=== PATIENT | female | born 1960 | race Two or more races ===

== ENCOUNTER 2017-08-09 06:15 | Inpatient (IN) | payer OTHER ==
[2017-07-30 13:46] VITALS: BMI 26.4
--- NOTE | 2017-08-09 07:35 | HP ---
History & Physical Update - History History: No Change - Physical Physical: No Change - Assessment Assessment: No Change - Plan Plan: No Change
--- NOTE | 2017-08-09 08:02 | PN ---
Progress Note (short form) - Note Progress Note: NEUROSURGERY PRE-OP Pt with worsening dysphagia secondary to enlarging C4-5 anterior osteophytes H/o initially C5-6 ACDF, followed by C6-T1 ACDF For partial corpectomies C5 and C6 Risks- bleeding, infection, hoarseness, swallowing difficulty, general anesthesia On SSRI with possible increased bleeding risks, though other non-reported confounding factors from the prior series could be the cause Further, patient has undergone multiple surgical procedures while on SSRI previously without hemorrhagic adverse events Care d/w Dr Tobias Pt understands the above and wishes to proceed at bedside All questions answered
[2017-08-09] MEDS ORDERED: THROMBIN (BOVINE) 5,000 UNIT VIAL TP ONE (09:46)
[2017-08-09] MEDS ORDERED: BACITRACIN 15 GM TUBE TOPICAL OINTMENT ONE (09:46)
[2017-08-09] MEDS ORDERED: SUCCINYLCHOLINE CHLORIDE 200 MG/10 ML VIAL ONE (09:49)
[2017-08-09] MEDS ORDERED: MIDAZOLAM HCL 2 MG/2 ML SINGLE DOSE VIAL ONE (09:49)
[2017-08-09] MEDS ORDERED: ceFAZolin SODIUM 1 GM VIAL IVPB ONE (10:30)
[2017-08-09] MEDS ORDERED: PROPOFOL 20 ML ONE ×12 (10:56→12:02)
[2017-08-09] MEDS ORDERED: ONDANSETRON 4 MG/2 ML VIAL ONE (11:01)
[2017-08-09] MEDS ORDERED: ceFAZolin SODIUM 1 GM VIAL ONE (11:01)
[2017-08-09] MEDS ORDERED: LIDOCAINE HCL/PF 2% SDV 5ML VIAL ONE (11:01)
[2017-08-09] MEDS ORDERED: DEXAMETHASONE SOD PHOSPHATE 4 MG/1 ML VIAL ONE (11:01)
[2017-08-09] MEDS ORDERED: LIDOCAINE HCL 2% JELLY (5 ML/TUBE) ONE (11:01)
[2017-08-09] MEDS ORDERED: DESFLURANE GAS 240 ML BOTTLE IH ONE (12:39)
[2017-08-09] MEDS ORDERED: oxyCODONE HCL 5 MG TABLET PO PRN (12:46)
[2017-08-09] MEDS ORDERED: ONDANSETRON 4 MG/2 ML VIAL IVPUSH PRN ×2 (12:46→13:30)
--- NOTE | 2017-08-09 12:46 | OP ---
Operative Note - Note: Operative Date: 08/09/17 Pre-Operative Diagnosis: C4 and C5 anterior osteophyes Operation: Partial corpectomies C4 and C5; microdissection, Gianni Suarez traction tongs for intra-op traction Findings: Large bridging L sided osteophytes C4 and C5 Post-Operative Diagnosis: Same as Pre-op Surgeon: Matthew Smallwood Assistant Controller: Alysia Pérez Anesthesiologist/ROCKET ENGINE COMPONENT MECHANIC: Noemi Becker MD Anesthesia: General Specimens Removed: C4 and C5 osteophytes Estimated Blood Loss (mls): 25
[2017-08-09] MEDS ORDERED: HYDROmorphone HCL CARPU-JECT 2 MG/1 ML DISP.SYRIN IVPB PRN (12:49)
[2017-08-09] MEDS ORDERED: SUMAtriptan SUCCINATE 50 MG TABLET PO PRN (12:50)
[2017-08-09] MEDS ORDERED: D5-1/2NS+20 MEQ KCL - 20 MEQ/1,000 ML INFUS.BAG IV SCH (13:00)
--- NOTE | 2017-08-09 13:18 | SURG ---
Surgery Karate Teacher Note Karate Teacher: Alysia Pérez PA-C Date of Service: 08/09/17 Diagnosis: C4 and C5 anterior osteophyes Procedure: Operation: Partial corpectomies C4 and C5; melissa, Gianni Suarez traction tongs for intra-op traction I was present for the entirety of the operative procedure. For further detail, please refer to operative report. Visit type - Case Type Case Type: Scheduled Admission - Emergency Emergency Visit: No - New patient This patient is new to me today: Yes Date on this admission: 08/09/17
[2017-08-09] MEDS ORDERED: LACTATED RINGERS SOLUTION 1,000 ML IV SCH (13:30)
--- NOTE | 2017-08-09 14:59 | PN ---
Progress Note (short form) - Note Progress Note: NEUROSURGERY In PACU Comfortable AF,VSSO2 sat 100% on 2 L PE: Dressing intact CV- RRR; Lungs- CTA B; Abd- benign; Ext- normal, no sign of DVT CN- intact; Motor- 4+-5/5 B UE/LE; Sensation- intact Intra-op findings d/w pt and All questions answered C spine x-rays in AM Pain meds PRN Adv diet- clear first
[2017-08-09] MEDS: FUROSEMIDE 40 MG TABLET (FP) PO SCH (16:19)
[2017-08-09] MEDS: DOCUSATE SODIUM 100 MG CAPSULE (FP) PO SCH ×2 (16:20→21:40)
[2017-08-09] MEDS: diazePAM 5 MG TABLET PO SCH ×2 (16:21→21:40)
[2017-08-09] MEDS: CEFAZOLIN 1 GM PUSH 1 GM/10 ML DISP.SYRIN IVPUSH SCH (18:00)
[2017-08-09] MEDS: TOPIRAMATE 25 MG TABLET (FP) PO SCH (21:40)
[2017-08-09] MEDS: PANTOPRAZOLE 40 MG TABLET (FP) PO SCH (21:40)
[2017-08-09] MEDS ORDERED: ZOLPIDEM TARTRATE 5 MG TABLET PO PRN (22:00)
[2017-08-09] MEDS ORDERED: PATIENT'S OWN MEDICATION (NON-FORMULARY) (Oxybutynin Chloride [Oxybutynin Chloride Er] 15 PO SCH (22:00)
[2017-08-09] MEDS ORDERED: QUEtiapine FUMARATE 100 MG TABLET (FP) PO SCH (22:00)
[2017-08-09] MEDS ORDERED: GABAPENTIN ENACARBIL 600 MG PO SCH (22:00)
[2017-08-09] MEDS ORDERED: MILNACIPRAN HCL 100 MG PO SCH (22:00)
[2017-08-09] MEDS ORDERED: RANITIDINE HCL 150 MG TABLET (FP) PO SCH (22:00)
[2017-08-10] MEDS: CEFAZOLIN 1 GM PUSH 1 GM/10 ML DISP.SYRIN IVPUSH SCH (01:12)
[2017-08-10] MEDS: FUROSEMIDE 40 MG TABLET (FP) PO SCH (05:45)
[2017-08-10] MEDS: DOCUSATE SODIUM 100 MG CAPSULE (FP) PO SCH (05:45)
[2017-08-10] MEDS: diazePAM 5 MG TABLET PO SCH (05:45)
--- NOTE | 2017-08-10 08:34 | PN ---
Progress Note (short form) - Note Progress Note: NEUROSURGERY In PACU Comfortable Some R breast area pain Tmax 98.9, AF,VSS PE: Dressing C/D/I, changed CV- RRR; Lungs- CTA B, no breast erosion/lesion noted (examined in RN Karla's presence); Abd- benign; Ext- normal, no sign of DVT CN- intact; Motor- 4+-5/5 B UE/LE; Sensation- intact Intra-op findings d/w pt and C spine x-rays this AM Pain meds PRN Possible atelectasis, encouraged incentive spirometry Discharge and wound care instructions given All questions answered
--- NOTE | 2017-08-10 08:43 | DS ---
Physical Examination Vital Signs: Vital Signs Temperature 98.9 F 08/10/17 07:06 Pulse Rate 103 H 08/10/17 07:06 Respiratory Rate 20 08/10/17 07:06 Blood Pressure 118/70 08/10/17 07:06 O2 Sat by Pulse Oximetry (%) 100 08/09/17 15:00 Constitutional: Yes: Well Nourished Eyes: Yes: WNL HENT: Yes: WNL Neck: Yes: WNL Cardiovascular: Yes: WNL Respiratory: Yes: WNL Gastrointestinal: Yes: WNL ...Rectal Exam: Yes: WNL, Sphincter Tone Normal Breast(s): Yes: WNL Musculoskeletal: Yes: WNL Extremities: Yes: WNL Edema: No Peripheral Pulses WNL: Yes Integumentary: Yes: WNL Wound/Incision: Yes: Clean/Dry, Dressing Dry and Intact Neurological: Yes: WNL ...Motor Strength: WNL Psychiatric: Yes: WNL Discharge Summary Reason For Visit: SPONDYLOSIS W/O MYELOPATHY OR RADICULOPATHY, CERVI Condition: Stable - Instructions Diet, Activity, Other Instructions: Post-op Instructions Diet: Regular Activity:May shower but keep incision line dry. Change dressing after shower with sterile gauze and tegaderm Restrictions: Do not lift anything over 10lbs. Additional Instructions: Keep incision line clean and dry. Change dressing daily. Report any chills, fever (100 or greater), any wound drainage, or any neurological changes to Dr. Smallwood. Do not drive for two weeks. Initial post-op appt: Call Dr. Smallwood's office to be seen in about 2 weeks Disposition: HOME - Home Medications Comprehensive Discharge Medication List: Ambulatory Orders Diazepam [Valium -] 10 mg PO HS 08/05/14 Diazepam [Valium] 5 mg PO DAILY 08/05/14 Furosemide [Lasix -] 20 mg PO BID 08/05/14 Potassium Chloride 20 meq PO DAILY 08/05/14 Quetiapine Fumarate [Seroquel -] 100 mg PO HS 08/05/14 Rabeprazole Sodium [Aciphex] 20 mg PO DAILY 08/05/14 Sumatriptan Succinate [Imitrex -] 100 mg PO PRN PRN 08/05/14 Zolpidem Tartrate [Ambien] 10 mg PO HS 08/05/14 Famotidine [Pepcid -] 40 mg PO HS 07/30/17 Gabapentin Enacarbil [Horizant] 600 mg PO BID 07/30/17 Milnacipran HCl [Savella] 100 mg PO BID 07/30/17 Omeprazole 40 mg PO BID 07/30/17 Oxybutynin Chloride [Oxybutynin Chloride ER] 15 mg PO HS 07/30/17 Topiramate 50 mg PO BID 07/30/17 Cephalexin Monohydrate [Keflex -] 500 mg PO Q6HPO #28 capsule 08/10/17 Oxycodone HCl [Roxicodone -] 5 mg PO Q6H PRN #56 tablet MDD 4 08/10/17
[2017-08-10] MEDS: PANTOPRAZOLE 40 MG TABLET (FP) PO SCH (09:44)
[2017-08-10] MEDS: TOPIRAMATE 25 MG TABLET (FP) PO SCH (09:44)
[2017-08-10] MEDS ORDERED: POTASSIUM CHLORIDE TABS 20 MEQ TABLET.ER (FP) PO SCH (10:00)
[2017-08-10] MEDS ORDERED: PANTOPRAZOLE 40 MG TABLET (FP) PO SCH (10:00)
[2017-08-10] MEDS ORDERED: CEPHALEXIN MONOHYDRATE 500 MG CAPSULE (UD) PO SCH (12:00)
[2017-08-10 14:31] VITALS: BP 133/70; PULSE 105; TEMP 100
--- NOTE | 2017-08-10 14:57 | PN ---
Progress Note (short form) - Note Progress Note: Anesthesia POD#1 S/P Anterior Cervical discectomy under GA VSS,no N/V,pain is bearable. Food is advanced. Meredith Plummer MD.
--- NOTE | 2017-08-10 19:00 | PATH ---
Surgical Pathology Report Patient Name: ARVIND GODWIN Med. Rec. #: [id number] /Age/Gender: 1960 (Age: 56) / F Account: [id number] Location: [facility] MED/SURG Taken: 08/09/2017 Received: 08/09/2017 Reported: 08/10/2017 Physicians: Matthew Smallwood M.D. Specimen(s) Received C4-C5 CORPECTOMIES Clinical History Spondylosis with myelopathy Final Diagnosis C4-C5, ANTERIOR CERVICAL CORPECTOMIES: BONE AND FIBROCARTILAGINOUS TISSUE. Electronically Signed Mary Pearson M.D. Gross Description Received in formalin labeled "C4-C5 corpectomies," is a 4.0 x 3.2 x 0.4 cm aggregate of gerber fragments of fibrocartilaginous tissue and possible bone. A signs sales representative portion is submitted in one cassette, following decalcification. 08/09/201708/09/2017
--- NOTE | 2017-08-26 13:10 | OP ---
DATE OF OPERATION: 08/09/2017 PREOPERATIVE DIAGNOSIS: 1. Enlarging C4 and C5 central and left-sided anterior osteophytes with progressive dysphagia. 2. History of C5 through T1 fusion. POSTOPERATIVE DIAGNOSIS: 1. Enlarging C4 and C5 central and left-sided anterior osteophytes with progressive dysphagia. 2. History of C5 through T1 fusion. ATTENDING SURGEON: Matthew Smalwlood MD LABORER RAGS: DENISE Gomes ANESTHESIA: General endotracheal. ANESTHESIOLOGIST: Noemi Becker MD PROCEDURE: 1. Preoperative placement and postoperative removal of cranial traction tongs for intraoperative traction (58156). 2. Anterior cervical partial corpectomy C4 and C5 with decompression (62318, 17822). 3. Microsurgical dissection with operative microscope and microsurgical technique (62515). FINDINGS: 1. Large left-sided anterior cervical osteophytes with significant mass effect. 2. Prevertebral soft tissue swelling. INDICATIONS: The patient is a 56-year-old female who had previously undergone C-C6 anterior cervical discectomy and fusion followed by subsequent C6 through T1 fusion for spondylolisthesis and disc herniation, who complains of just about 1+ year history of progressive dysphagia. She stated that she has undergone CT scan and x-rays of the cervical spine demonstrating progressively enlarging left-sided anterior cervical osteophytes. She also has difficulty with dysphagia. Because of her worsening symptoms and impingement caused by the large osteophytes, she has consented for an anterior cervical decompression. Preoperative medical, cardiology and hematology clearance were obtained. The patient understands the indications for the procedure, the procedure in detail, risks and benefits, as well as alternative treatments to her condition, and she wished to proceed. She understands that she is at somewhat increased risk of bleeding because of her use of serotonin reuptake inhibitor use for mood stabilization. Intraoperative SSEP, EMG, and recurrent laryngeal nerve monitoring were instituted. PROCEDURE IN DETAIL: After the patient was taken to the operating room, she was placed in the supine position. After general anesthesia was induced and appropriate monitoring lines were placed, her shoulders down to the sides. The head was secured on the [place] in a neutral position. The cranial retraction towels were placed, applied with Bacitracin ointment. No traction weight was placed until baseline and neuromonitoring signals were obtained. This monitoring included recurrent laryngeal nerve monitoring. At this point, the prior C5-C6 incision was utilized. The skin was undermined with Metzenbaum scissors. Self-retaining retractor was inserted at that point. The patient had previously been sterilely prepped and draped. The dissection proceeded medial to the carotid sheath, and lateral to the trachea and the esophagus. Some degree of paraspinal and fibrosis was encountered. The large anterior osteophytes were identified and skeletonized with a combination of blunt and sharp dissection. A self-retaining radiolucent retractor system was inserted at this point. Local with IV sedation was obtained at this point to localize the exposure to C4-C5. A more cephalad approach was needed because the prior incision was made for C5-C6. With the use of Leksell rongeur, high-speed pneumatic drill, as well as pituitary rongeur, the large cervical osteophyte was resected. It was predominantly left-sided. Hemostasis was obtained with bipolar electrocautery. The osteophyte was thoroughly resected and was inspected carefully from the cranial to caudal exposure. The anterior vertebral body was palpated and manually palpated, and it was felt to be flat after decompression was completed. This portion of the procedure was performed with the use of the operative microscope for both illumination and magnification. Microsurgical techniques were utilized. The wound was irrigated with several rounds of antibiotic and irrigation. After the decompression was completed, the area was once again palpated manually, and there do not appear to be any significant residual large osteophyte. Several cervical spine x-rays were obtained demonstrating significant improvement as well as the large bridging osteophytes. In all, partial corpectomy of the bottom vertebral body of the left-sided vertebral body of C4 and C% were carried out in order to achieve decompression. Layered Surgicel was layered in the dissection tract as well as the prevertebral fascia area. The platysmal muscle was closed with 3-0 Vicryl suture, as was subcutaneous fascia. Skin was closed with 4-0 Vicryl running subcuticular suture. Steri-Strips and sterile occlusive dressing were applied. The patient tolerated the procedure well and was extubated in the operating room. She received 1 g of Ancef and 10 mg of dexamethasone prior to the incision. The OR time-out procedure was followed. Intraoperative SSEP and EMG signals were stable throughout. The patient and her were notified of the intraoperative findings. MATTHEW SMALLWOOD M.D. KYLE/[id number]
== END 2017-08-10 15:46 | disposition home or self-care (01) | DRG 473 ==
LOC: JSAMEDAYSX 06:15 → J8W 15:30
PROVIDERS: ADMIT Neurological Surgery; ATTEND Neurological Surgery
PROC: 01N10ZZ Release Cervical Nerve, Open Approach (ICD-10-PCS; 2017-08-09)
PROC: 0RP Upper Joints, Removal (ICD-10-PCS; 2017-08-09)
PROC: 0RG10J0 Fusion of Cervical Vertebral Joint with Synthetic Substitute, Anterior Approach, Anterior Column, Open Approach (ICD-10-PCS; principal; 2017-08-09 08:00)
DX: M25.78 Osteophyte, vertebrae (principal); M47.812 Spondylosis without myelopathy or radiculopathy, cervical region; R13.10 Dysphagia, unspecified
CPT/HCPCS: 72050-TC; 86850; 86900; 86901; 88304-TC; 88311-TC; 94760; 97116-GP

== ENCOUNTER 2018-09-20 05:30 | Day surgery (SDC) | payer OTHER ==
[2018-09-12 13:33] VITALS: BMI 24.5
[2018-09-20] MEDS ORDERED: LIDOCAINE 1%/EPI 1:100000 (20 ML MULTI DOSE VIAL) ONE (07:19)
[2018-09-20] MEDS ORDERED: BUPIVACAINE HCL/PF 0.5% (5MG/ML) 10 ML VIAL ONE (07:19)
[2018-09-20] MEDS ORDERED: oxyCODONE HCL 5 MG TABLET PO PRN (12:37)
[2018-09-20] MEDS ORDERED: PROMETHAZINE HCL 25 MG/1 ML VIAL IVPB PRN (12:37)
[2018-09-20] MEDS ORDERED: LACTATED RINGERS SOLUTION 1,000 ML IV SCH (12:45)
--- NOTE | 2018-09-20 13:07 | HP ---
Admitting History and Physical - Primary Care Physician PCP: Deon Smith (Bank Officer) - Admission Chief Complaint: Pain in the right bunion History of Present Illness: After years of suffering patient has requested surgical correction History Source: Medical Record (Medical history deferred to PCP) - Past Medical History ARTISAN PLASTERER: Yes: Seizure Cardiovascular: Yes: HTN Pulmonary: Yes: Asthma Gastrointestinal: Yes: GERD ...: No Psych: Yes: Anxiety Musculoskeletal: Yes: Chronic low back pain, Other (S/P right TKR, Hx of surgery for DeQuervain tenosynovitis, s/p surgery for bilateral carpa;l tunnel syndrome) - Past Surgical History Past Surgical History: Yes: Hysterectomy, Joint Replacement, Laminectomy (left foot surgery) - Smoking History Smoking history: Never smoked Have you smoked in the past 12 months: No Aproximately how many cigarettes per day: 0 - Alcohol/Substance Use Hx Alcohol Use: No - Social History History of Recent Travel: No Home Medications - Allergies Allergies/Adverse Reactions: Allergies Allergy/AdvReac Type Severity Reaction Status Date / Time No Known Allergies Allergy Verified 09/12/18 13:00 - Home Medications Home Medications: Ambulatory Orders Diazepam [Valium -] 10 mg PO HS 08/05/14 Diazepam [Valium] 5 mg PO DAILY 08/05/14 Furosemide [Lasix -] 20 mg PO BID 08/05/14 Potassium Chloride 20 meq PO DAILY 08/05/14 Quetiapine Fumarate [Seroquel -] 100 mg PO HS 08/05/14 Sumatriptan Succinate [Imitrex -] 100 mg PO PRN PRN 08/05/14 Zolpidem Tartrate [Ambien] 10 mg PO HS 08/05/14 Famotidine [Pepcid -] 40 mg PO HS 07/30/17 Gabapentin Enacarbil [Horizant] 600 mg PO BID 07/30/17 Omeprazole 40 mg PO DAILY 07/30/17 Topiramate 50 mg PO BID 07/30/17 Lifitegrast [Xiidra] 1 OU BID 09/12/18 Oxybutynin Chloride [Ditropan -] 50 mg PO DAILY 09/12/18 Physical Examination Vital Signs: Vital Signs Temperature 97.4 F L 09/20/18 11:31 Pulse Rate 83 09/20/18 11:31 Respiratory Rate 16 09/20/18 11:31 Blood Pressure 125/78 09/20/18 11:31 O2 Sat by Pulse Oximetry (%) 99 09/20/18 11:31 Musculoskeletal: Yes: Other (Right bunion with hallux valgus.) Assessment/Plan Assessment Right bunion with hallux valgus is moderate in severity. Joint integrity is considered adequate for joint realignment. Patient seems calm and prepared for the post operative course. Plan Right Raghav Bunionectomy with screw fixation.
[2018-09-20] MEDS ORDERED: MIDAZOLAM HCL 2 MG/2 ML SINGLE DOSE VIAL ONE (13:11)
[2018-09-20] MEDS ORDERED: PROPOFOL 20 ML ONE ×2 (13:11→16:13)
[2018-09-20] MEDS ORDERED: LIDOCAINE HCL/PF 2% SDV 5ML VIAL ONE (15:12)
[2018-09-20] MEDS ORDERED: ceFAZolin SODIUM 1 GM VIAL ONE (15:18)
[2018-09-20] MEDS ORDERED: SODIUM CHLORIDE 0.9% P/F 10 ML VIAL IJ ONE (15:18)
[2018-09-20] MEDS ORDERED: ceFAZolin SODIUM 1 GM VIAL IVPB ONE (15:19)
[2018-09-20] MEDS ORDERED: BUPIVACAINE HCL/PF (5 MG/ML) 30 ML VIAL IJ ONE (15:30)
[2018-09-20] MEDS ORDERED: LIDOCAINE 1%/EPI 1:100000 (20 ML MULTI DOSE VIAL) IJ ONE (15:30)
[2018-09-20] MEDS ORDERED: KETOROLAC TROMETHAMINE 30 MG/1 ML VIAL ONE (16:08)
[2018-09-20] MEDS ORDERED: MEPERIDINE HCL CARPU-JECT 25 MG/1 ML DISP.SYRIN ONE (16:35)
[2018-09-20] MEDS ORDERED: MEPERIDINE HCL CARPU-JECT 25 MG/1 ML DISP.SYRIN IVPUSH ONE ×2 (16:36→16:40)
[2018-09-20 17:40] VITALS: BP 117/70; PULSE 61; TEMP 98
--- NOTE | 2018-09-20 17:42 | OP ---
DATE OF OPERATION: 09/20/2018 SURGEON: Deon Smith DPM PREOPERATIVE DIAGNOSIS: Right bunion with hallux valgus. POSTOPERATIVE DIAGNOSIS: Right bunion with hallux valgus. PROCEDURE: Right Raghav bunionectomy. DESCRIPTION OF PROCEDURE: Under fractional anesthesia, and the surgical scrub with Betadine scrub and solution x2, the patient was draped using sterile technique. No ankle tourniquet was used. The linear longitudinal incision was made over the right first metatarsophalangeal joint. The incision was deepened through fascia and retracted, exposing the extensor borjas apparatus and the deep fascia. The extensor borjas apparatus was medially incised and laterally reflected. Longitudinal capsulotomy was performed, medial and lateral sesamoidal ligaments were cut, and the head of the first metatarsal was delivered into the wound. The medial eminence was resected using a bone saw, and then an L-shaped osteotomy was made at the anatomic neck of the right first metatarsal. The first metatarsal head was transposed laterally and fixed on the shaft, first with 2 temporary K-wires and then with two 2.5 Boring 28 headless bone screws. Following copious irrigation and remodeling of the remaining bone, joint capsule was repositioned in normal anatomic position and sutured with 3-0 Vicryl suture. The extensor borjas apparatus was repositioned and sutured in similar fashion, and then superficial fascia also repositioned and sutured with 4-0 Vicryl sutures. Lastly, the skin was reapproximated and sutured with 4-0 subcuticular sutures and Steri-Strips. The Betadine sterile dressing was applied to the right foot. The patient tolerated the surgical procedure well, left the operating room stable, alert, awake, and in no pain. RAJAN RAYGOZA/[id number]
--- NOTE | 2018-09-23 20:46 | PATH ---
Surgical Pathology Report Patient Name: ARVIND GODWIN Med. Rec. #: [id number] /Age/Gender: 1960 (Age: 57) / F Account: [id number] Location: [facility] SURGICAL Taken: 09/20/2018 Received: 09/21/2018 Reported: 09/23/2018 Physicians: Deon Smith M.D. Specimen(s) Received BUNION Clinical History Bunion of right foot Final Diagnosis BUNION, RIGHT, SHAD BUNIONECTOMY: BONE WITH DEGENERATIVE CHANGES. Electronically Signed Mary Pearson M.D. Gross Description Received in formalin labeled "bunion," are 2 gerber portions of bone measuring 1.1 and 2.0 cm in greatest dimension. Cane Piler sections are submitted in one cassette, following decalcification. /09/22/201809/22/2018
== END 2018-09-20 18:45 | disposition home or self-care (01) ==
LOC: JASU-SURG 05:30
PROVIDERS: ATTEND Podiatrist Foot Surgery
PROC: 0QSN04Z Reposition Right Metatarsal with Internal Fixation Device, Open Approach (ICD-10-PCS; principal; 2018-09-20 13:00)
DX: M21.611 Bunion of right foot (principal); M20.11 Hallux valgus (acquired), right foot
CPT/HCPCS: 88305-TC; 88311-TC; 94760; 97116-GP

== ENCOUNTER 2019-10-30 11:16 | Emergency (ER) | payer OTHER ==
[2019-10-30 12:32] VITALS: BP 115/72; PULSE 8; TEMP 97.9; BMI 27.4
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
== END 2019-10-30 14:21 | disposition home or self-care (01) ==
LOC: EDBD → JERFT 11:16
DX: S97.81XA Crushing injury of right foot, initial encounter (principal); W22.8XXA Striking against or struck by other objects, initial encounter; Y93.89 Activity, other specified; Y92.811 Bus as the place of occurrence of the external cause; Y99.8 Other external cause status; M46.86 Other specified inflammatory spondylopathies, lumbar region; Z98.1 Arthrodesis status; K21.9 Gastro-esophageal reflux disease without esophagitis; F32.9 Major depressive disorder, single episode, unspecified; Z86.73 Personal history of transient ischemic attack (TIA), and cerebral infarction without residual deficits; Z98.890 Other specified postprocedural states
CPT/HCPCS: 72100-TC-FY; 73630-TC-RT-FY; 99284-25

== ENCOUNTER 2021-06-10 04:51 | Day surgery (SDC) | payer OTHER, MEDICARE ==
[2021-06-05 16:52] VITALS: BMI 27.3
[2021-06-10] MEDS ORDERED: BUPIVACAINE HCL/PF 0.5% (5MG/ML) 10 ML VIAL ONE (12:53)
[2021-06-10] MEDS ORDERED: LIDOCAINE HCL 1% PRESERVATIVE FREE - 30ML VIAL IJ ONE (13:05)
[2021-06-10] MEDS ORDERED: BUPIVACAINE HCL/PF 0.75% 10 ML VIAL RB ONE (13:05)
[2021-06-10] MEDS ORDERED: IOHEXOL 180 MG/1 ML ML IJ ONE (13:05)
[2021-06-10 13:33] VITALS: BP 125/85; PULSE 74; TEMP 97.7
== END 2021-06-10 13:56 | disposition home or self-care (01) ==
LOC: EDBD → JASU-SURG 04:51
PROVIDERS: ATTEND Pain Medicine Pain Medicine
PROC: BR16YZZ Fluoroscopy of Lumbar Facet Joint(s) using Other Contrast (ICD-10-PCS; 2021-06-10)
PROC: 3E0T3BZ Introduction of Anesthetic Agent into Peripheral Nerves and Plexi, Percutaneous Approach (ICD-10-PCS; principal; 2021-06-10 10:15)
DX: M47.816 Spondylosis without myelopathy or radiculopathy, lumbar region (principal)
CPT/HCPCS: 76000-TC-FY

== ENCOUNTER 2021-11-13 04:14 | Day surgery (SDC) | payer OTHER, MEDICARE ==
[2021-11-10 15:43] VITALS: BMI 29.5
[2021-11-13] MEDS ORDERED: BUPIVACAINE HCL/PF 0.25% (2.5MG/ML) 10 ML VIAL ONE (07:30)
[2021-11-13] MEDS ORDERED: BUPIVACAINE HCL/PF 0.5% (5MG/ML) 10 ML VIAL ONE (07:30)
[2021-11-13] MEDS ORDERED: ONDANSETRON 4 MG/2 ML VIAL IVPUSH PRN (09:10)
[2021-11-13] MEDS ORDERED: oxyCODONE HCL 5 MG TABLET PO PRN ×2 (09:10)
[2021-11-13] MEDS ORDERED: LACTATED RINGERS SOLUTION 1,000 ML IV SCH (09:15)
[2021-11-13 12:05] VITALS: TEMP 97.7
[2021-11-13 13:14] VITALS: BP 110/59; PULSE 70
== END 2021-11-13 12:18 | disposition home or self-care (01) ==
LOC: JASU-SURG 04:14
PROVIDERS: ATTEND Podiatrist Foot & Ankle Surgery
PROC: 0QBN0ZZ Excision of Right Metatarsal, Open Approach (ICD-10-PCS; principal; 2021-11-13 08:34)
DX: M20.11 Hallux valgus (acquired), right foot (principal)
CPT/HCPCS: 73630-TC-RT-FY; 88304-TC; 88311-TC

== ENCOUNTER 2022-06-10 07:30 | Inpatient (IN) | payer OTHER, MEDICARE ==
[2022-06-29 12:08] VITALS: BMI 29.0
[2022-07-01] MEDS ORDERED: THROMBIN (BOVINE) 5,000 UNIT VIAL TP ONE ×4 (07:17→11:18)
[2022-07-01] MEDS ORDERED: BUPIVACAINE HCL/PF 0.5% (5MG/ML) 10 ML VIAL ONE (07:17)
[2022-07-01] MEDS ORDERED: ceFAZolin SODIUM 1 GM VIAL IVPB ONE (08:45)
[2022-07-01] MEDS ORDERED: VANCOMYCIN 1,000 MG VIAL (RESTRICTED TO ID ONLY) ONE (08:54)
[2022-07-01] MEDS ORDERED: ALBUMIN HUMAN 5% 250 ML IV SOLUTION IV ONE (09:00)
[2022-07-01] MEDS ORDERED: VANCOMYCIN 1,000 MG VIAL (RESTRICTED TO ID ONLY) IVPB ONE (10:00)
[2022-07-01] MEDS ORDERED: BISACODYL 10 MG SUPP.RECT RC PRN (12:21)
[2022-07-01] MEDS ORDERED: ONDANSETRON 4 MG/2 ML VIAL IVPUSH PRN ×3 (12:21→13:14)
[2022-07-01] MEDS ORDERED: BACITRACIN 15 GM TUBE TOPICAL OINTMENT TP ONE (12:25)
[2022-07-01] MEDS ORDERED: D5-1/2NS+20 MEQ KCL - 1,000 ML IV SCH (12:30)
[2022-07-01] MEDS ORDERED: diazePAM 5 MG TABLET PO SCH (12:30)
[2022-07-01] MEDS ORDERED: DEXAMETHASONE SOD PHOSPHATE 4 MG/1 ML VIAL IVPUSH PRN (13:09)
[2022-07-01] MEDS: HYDROmorphone *PCA* 10MG/50ML DISP.SYRIN PCA SCH (13:59)
[2022-07-01] MEDS: D5-1/2NS+20 MEQ KCL - 20 MEQ/1,000 ML INFUS.BAG IV SCH (13:59)
[2022-07-01] MEDS: DOCUSATE SODIUM 100 MG CAPSULE (FP) PO SCH ×2 (14:48→22:39)
[2022-07-01 15:38] LABS: HEMATOCRIT 33.4 % (32.4-45.2); HEMOGLOBIN 11.2 GM/dL (10.7-15.3); MCH 30.8 pg (25.7-33.7); MCHC 33.5 g/dl (32.0-36.0); MEAN CELL VOLUME 92.1 fl (80-96); MEAN PLT VOLUME 9.8 fl (7.5-11.1); PLATELET COUNT 120 10^3/uL (134-434); RBC 3.63 M/mm3 (3.60-5.2)
[2022-07-01 16:09] LABS: CALCIUM 8.6 mg/dL (8.5-10.1)
[2022-07-01 16:10] LABS: BLOOD UREA NITROGEN 12.2 mg/dL (7-18)
[2022-07-01 16:13] LABS: CREATININE 1.3 mg/dL (0.55-1.3)
[2022-07-01] MEDS ORDERED: MEPERIDINE HCL 25 MG/ML VIAL IVPUSH ONE (17:17)
[2022-07-01] MEDS: LACTATED RINGERS SOLUTION 1,000 ML/1,000 ML INFUS.BAG IV SCH (17:30)
[2022-07-01] MEDS ORDERED: ceFAZolin SODIUM 1 GM VIAL ONE (17:42)
[2022-07-01] MEDS ORDERED: LACTATED RINGERS SOLUTION 1000 ML INFUS.BAG IV ONE (17:45)
[2022-07-01] MEDS: ACETAMINOPHEN 1000 MG/100 ML BAG IVPB PRN (18:00)
[2022-07-01] MEDS: CEFAZOLIN 1 GM in DEXTROSE 5%-WATER - 50 ML IVPB SCH (22:38)
[2022-07-01] MEDS: TOPIRAMATE 25 MG TABLET PO SCH (22:39)
[2022-07-01] MEDS: diazePAM 5 MG TABLET PO SCH (22:39)
[2022-07-01] MEDS: POTASSIUM CHLORIDE TABS 20 MEQ TABLET.ER (FP) PO SCH (22:39)
[2022-07-01] MEDS: QUEtiapine FUMARATE 100 MG TABLET (FP) PO SCH (22:39)
[2022-07-02] MEDS: CEFAZOLIN 1 GM in DEXTROSE 5%-WATER - 50 ML IVPB SCH ×4 (01:22→17:27)
[2022-07-02] MEDS: ACETAMINOPHEN 1000 MG/100 ML BAG IVPB PRN ×2 (05:46→13:19)
[2022-07-02] MEDS: diazePAM 5 MG TABLET PO SCH ×3 (05:47→21:22)
[2022-07-02] MEDS: FUROSEMIDE 40 MG TABLET (FP) PO SCH ×2 (05:48→14:21)
[2022-07-02] MEDS: DOCUSATE SODIUM 100 MG CAPSULE (FP) PO SCH ×3 (05:48→21:22)
[2022-07-02] MEDS: FAMOTIDINE 20 MG TABLET PO SCH (06:13)
[2022-07-02] MEDS: TOPIRAMATE 25 MG TABLET PO SCH ×2 (09:32→21:22)
[2022-07-02] MEDS: POTASSIUM CHLORIDE TABS 20 MEQ TABLET.ER (FP) PO SCH ×2 (09:32→21:22)
[2022-07-02] MEDS ORDERED: RIMEGEPANT SULFATE 75 MG TAB.RAPDIS SL PRN (11:33)
[2022-07-02] MEDS: LACTATED RINGERS SOLUTION 1,000 ML/1,000 ML INFUS.BAG IV SCH (12:22)
[2022-07-02] MEDS: HYDROmorphone *PCA* 10MG/50ML DISP.SYRIN PCA SCH (13:26)
[2022-07-02] MEDS: D5-1/2NS+20 MEQ KCL - 20 MEQ/1,000 ML INFUS.BAG IV SCH (13:28)
[2022-07-02] MEDS: prednisoLONE ACETATE 1% OPHTH SUSP 5 ML BOTTLE OD SCH ×3 (14:22→21:22)
[2022-07-02] MEDS: [UNRECOGNIZED DRUG - OTHER] OU SCH ×3 (14:22→23:05)
[2022-07-02] MEDS: PANTOPRAZOLE 40 MG TABLET PO SCH (17:27)
[2022-07-02] MEDS: ACETAMINOPHEN 325 MG TABLET (FP) PO PRN (21:21)
[2022-07-02] MEDS: QUEtiapine FUMARATE 100 MG TABLET (FP) PO SCH (21:22)
[2022-07-02] MEDS: PATIENT'S OWN MEDICATION (NON-FORMULARY) (Lifitegrast [Xiidra] 1 EACH Droperette) OU SCH (23:06)
[2022-07-02] MEDS: PATIENT'S OWN MEDICATION (NON-FORMULARY) (Gabapentin Enacarbil [Horizant] 600 MG Tablet.Er PO SCH (23:06)
[2022-07-03] MEDS: LACTATED RINGERS SOLUTION 1,000 ML/1,000 ML INFUS.BAG IV SCH ×3 (00:05→17:30)
[2022-07-03 00:58] LABS: EOS % 0.2 % (0-4.5); HEMATOCRIT 33.2 % (32.4-45.2); HEMOGLOBIN 11.1 GM/dL (10.7-15.3); LYMPH % 9.3 % (8-40); MCH 30.7 pg (25.7-33.7); MCHC 33.5 g/dl (32.0-36.0); MEAN CELL VOLUME 91.7 fl (80-96); MEAN PLT VOLUME 10.2 fl (7.5-11.1); MONO % 8.2 % (3.8-10.2); NEUT % 82.3 % (42.8-82.8); PLATELET COUNT 105 10^3/uL (134-434); RBC 3.62 M/mm3 (3.60-5.2); RDW 12.8 % (11.6-15.6); WHITE BLOOD COUNT 15.1 K/mm3 (4.0-10.0)
[2022-07-03 01:01] LABS: EPI CELLS 11 /uL (0-25.1); HYALINE CASTS 1 /uL (0-3.1); URINE APPEARANCE CLEAR; URINE BACTERIA 4 /uL (0-1359); URINE BILIRUBIN NEGATIVE (NEGATIVE); URINE COLOR YELLOW; URINE GLUCOSE (UA) NEGATIVE (NEGATIVE); URINE KETONE NEGATIVE (NEGATIVE); URINE LEUK ESTERASE TRACE (NEGATIVE); URINE NITRITE NEGATIVE (NEGATIVE); URINE PROTEIN TRACE (NEGATIVE); URINE RBC 20 /uL (0-23.9); URINE WBC 23 /uL (0-25.8)
[2022-07-03 01:18] LABS: ALBUMIN 2.8 g/dl (3.4-5.0); BLOOD UREA NITROGEN 11.6 mg/dL (7-18); CALCIUM 8.6 mg/dL (8.5-10.1)
[2022-07-03 01:21] LABS: CREATININE 1.4 mg/dL (0.55-1.3)
[2022-07-03 01:25] LABS: TOT PROT 6.1 g/dl (6.4-8.2)
[2022-07-03 01:28] LABS: BILIRUBIN,TOTAL 0.8 mg/dL (0.2-1)
[2022-07-03] MEDS: CEFAZOLIN 1 GM in DEXTROSE 5%-WATER - 50 ML IVPB SCH ×3 (02:08→17:33)
[2022-07-03] MEDS: DOCUSATE SODIUM 100 MG CAPSULE (FP) PO SCH ×3 (06:14→21:39)
[2022-07-03] MEDS: FAMOTIDINE 20 MG TABLET PO SCH (06:14)
[2022-07-03] MEDS: diazePAM 5 MG TABLET PO SCH ×3 (06:14→21:39)
[2022-07-03] MEDS: FUROSEMIDE 40 MG TABLET (FP) PO SCH ×2 (06:15→14:32)
[2022-07-03] MEDS: POTASSIUM CHLORIDE TABS 20 MEQ TABLET.ER (FP) PO SCH ×2 (09:34→21:39)
[2022-07-03] MEDS: TOPIRAMATE 25 MG TABLET PO SCH ×2 (09:34→21:39)
[2022-07-03] MEDS: [UNRECOGNIZED DRUG - OTHER] OU SCH ×4 (09:35→21:51)
[2022-07-03] MEDS: PATIENT'S OWN MEDICATION (NON-FORMULARY) (Lifitegrast [Xiidra] 1 EACH Droperette) OU SCH ×2 (09:35→21:51)
[2022-07-03] MEDS: PATIENT'S OWN MEDICATION (NON-FORMULARY) (Gabapentin Enacarbil [Horizant] 600 MG Tablet.Er PO SCH (09:35)
[2022-07-03] MEDS: prednisoLONE ACETATE 1% OPHTH SUSP 5 ML BOTTLE OD SCH ×4 (09:35→21:51)
[2022-07-03 10:33] LABS: BASO % 0.2 % (0-2.0); EOS % 0.4 % (0-4.5); HEMATOCRIT 36.1 % (32.4-45.2); HEMOGLOBIN 11.8 GM/dL (10.7-15.3); LYMPH % 6.9 % (8-40); MCH 30.2 pg (25.7-33.7); MCHC 32.8 g/dl (32.0-36.0); MEAN CELL VOLUME 92.1 fl (80-96); MONO % 7.2 % (3.8-10.2); NEUT % 85.3 % (42.8-82.8); PLATELET COUNT 129 10^3/uL (134-434); RBC 3.92 M/mm3 (3.60-5.2); RDW 13.4 % (11.6-15.6)
[2022-07-03 10:54] LABS: BLOOD UREA NITROGEN 9.9 mg/dL (7-18)
[2022-07-03] MEDS: ACETAMINOPHEN 325 MG TABLET (FP) PO PRN (13:00)
[2022-07-03] MEDS: D5-1/2NS+20 MEQ KCL - 20 MEQ/1,000 ML INFUS.BAG IV SCH (13:00)
[2022-07-03] MEDS: HYDROmorphone *PCA* 10MG/50ML DISP.SYRIN PCA SCH (14:31)
[2022-07-03] MEDS: PANTOPRAZOLE 40 MG TABLET PO SCH (17:31)
[2022-07-03] MEDS ORDERED: VANCOMYCIN/WATER FOR INJ (PEG) 1,000 MG/200 ML BAG IVPB SCH (18:00)
[2022-07-03] MEDS: PIPERACILLIN/TAZOB 2.25 GM 2.25 GM in DEXTROSE 5%-WATER - 50 ML IVPB SCH (18:21)
[2022-07-03] MEDS: ACETAMINOPHEN 500 MG TABLET (FP) PO SCH (18:47)
[2022-07-03] MEDS: VANCOMYCIN/WATER FOR INJ (PEG) 1,000 MG/200 ML BAG IVPB SCH (18:47)
[2022-07-03 19:39] LABS: BASO % 0.1 % (0-2.0); EOS % 0.3 % (0-4.5); HEMATOCRIT 28.9 % (32.4-45.2); HEMOGLOBIN 9.7 GM/dL (10.7-15.3); MCH 30.9 pg (25.7-33.7); MCHC 33.7 g/dl (32.0-36.0); MEAN CELL VOLUME 91.8 fl (80-96); MEAN PLT VOLUME 9.9 fl (7.5-11.1); MONO % 4.4 % (3.8-10.2); NEUT % 87.2 % (42.8-82.8); PLATELET COUNT 105 10^3/uL (134-434); RBC 3.14 M/mm3 (3.60-5.2); RDW 12.9 % (11.6-15.6); WHITE BLOOD COUNT 14.1 K/mm3 (4.0-10.0)
[2022-07-03 19:47] LABS: CALCIUM 8.1 mg/dL (8.5-10.1); MAGNESIUM 1.6 mg/dL (1.8-2.4)
[2022-07-03 19:50] LABS: CREATININE 1.3 mg/dL (0.55-1.3)
[2022-07-03 19:52] LABS: BILIRUBIN,TOTAL 0.8 mg/dL (0.2-1); TOT PROT 5.1 g/dl (6.4-8.2)
[2022-07-03 19:54] LABS: ALBUMIN 2.2 g/dl (3.4-5.0)
[2022-07-03] MEDS: QUEtiapine FUMARATE 100 MG TABLET (FP) PO SCH (21:39)
[2022-07-03] MEDS ORDERED: VANCOMYCIN 1 GM in D5W (PRE-DOCKED) 1,000 MG/250 ML IVPB SCH (22:00)
[2022-07-04] MEDS: PIPERACILLIN/TAZOB 2.25 GM 2.25 GM in DEXTROSE 5%-WATER - 50 ML IVPB SCH ×2 (02:02→10:52)
[2022-07-04] MEDS: ACETAMINOPHEN 500 MG TABLET (FP) PO SCH ×3 (02:03→14:30)
[2022-07-04] MEDS: PATIENT'S OWN MEDICATION (NON-FORMULARY) (Gabapentin Enacarbil [Horizant] 600 MG Tablet.Er PO SCH ×3 (02:34→22:52)
[2022-07-04] MEDS: VANCOMYCIN/WATER FOR INJ (PEG) 1,000 MG/200 ML BAG IVPB SCH (05:58)
[2022-07-04] MEDS ORDERED: MAGNESIUM OXIDE 400 MG TABLET (FP) PO ONE (06:30)
[2022-07-04] MEDS: FAMOTIDINE 20 MG TABLET PO SCH (06:51)
[2022-07-04] MEDS: FUROSEMIDE 40 MG TABLET (FP) PO SCH ×2 (06:51→14:30)
[2022-07-04] MEDS: DOCUSATE SODIUM 100 MG CAPSULE (FP) PO SCH ×3 (06:52→22:43)
[2022-07-04] MEDS: diazePAM 5 MG TABLET PO SCH ×2 (07:51→14:50)
[2022-07-04] MEDS ORDERED: oxyCODONE HCL 5 MG TABLET PO PRN ×2 (10:10)
[2022-07-04] MEDS: TOPIRAMATE 25 MG TABLET PO SCH ×2 (10:52→22:43)
[2022-07-04] MEDS: POTASSIUM CHLORIDE TABS 20 MEQ TABLET.ER (FP) PO SCH (10:52)
[2022-07-04] MEDS: [UNRECOGNIZED DRUG - OTHER] OU SCH ×3 (11:02→22:53)
[2022-07-04] MEDS: prednisoLONE ACETATE 1% OPHTH SUSP 5 ML BOTTLE OD SCH ×3 (11:03→22:52)
[2022-07-04] MEDS: PATIENT'S OWN MEDICATION (NON-FORMULARY) (Lifitegrast [Xiidra] 1 EACH Droperette) OU SCH ×2 (11:03→22:51)
[2022-07-04 12:28] LABS: BASO % 0.2 % (0-2.0); EOS % 1.8 % (0-4.5); HEMATOCRIT 29.6 % (32.4-45.2); HEMOGLOBIN 9.5 GM/dL (10.7-15.3); LYMPH % 12.2 % (8-40); MCH 29.7 pg (25.7-33.7); MCHC 32.1 g/dl (32.0-36.0); MEAN CELL VOLUME 92.6 fl (80-96); MEAN PLT VOLUME 10.2 fl (7.5-11.1); MONO % 6.7 % (3.8-10.2); NEUT % 79.1 % (42.8-82.8); PLATELET COUNT 135 10^3/uL (134-434); RDW 12.8 % (11.6-15.6); WHITE BLOOD COUNT 14.3 K/mm3 (4.0-10.0)
[2022-07-04 12:52] LABS: IRON SERUM 17 ug/dL (50-175)
[2022-07-04 12:54] LABS: ALBUMIN 2.5 g/dl (3.4-5.0); CALCIUM 8.2 mg/dL (8.5-10.1); TOTAL IRON BINDING CAPACITY 167 ug/dL (250-450)
[2022-07-04 12:55] LABS: BLOOD UREA NITROGEN 9.3 mg/dL (7-18); MAGNESIUM 2.1 mg/dL (1.8-2.4)
[2022-07-04 12:58] LABS: CREATININE 1.2 mg/dL (0.55-1.3)
[2022-07-04 12:59] LABS: BILIRUBIN,TOTAL 1.2 mg/dL (0.2-1); TOT PROT 5.8 g/dl (6.4-8.2)
[2022-07-04] MEDS ORDERED: VANCOMYCIN/WATER FOR INJ (PEG) 1,000 MG/200 ML BAG IVPB SCH ×2 (14:00→18:00)
[2022-07-04] MEDS: D5-1/2NS+20 MEQ KCL - 20 MEQ/1,000 ML INFUS.BAG IV SCH (15:05)
[2022-07-04] MEDS ORDERED: KETOROLAC TROMETHAMINE 15 MG/ML VIAL IVPUSH ONE (17:25)
[2022-07-04] MEDS ORDERED: LACTATED RINGERS SOLUTION 1000 ML INFUS.BAG IV ONE (17:27)
[2022-07-04] MEDS ORDERED: LACTATED RINGERS SOLUTION 1,000 ML/1,000 ML INFUS.BAG IV SCH (17:30)
[2022-07-04] MEDS ORDERED: PIPERACILLIN/TAZOB 3.375 GM 3.375 GM in DEXTROSE 5%-WATER - 50 ML IVPB SCH (18:00)
[2022-07-04] MEDS: PANTOPRAZOLE 40 MG TABLET PO SCH (18:15)
[2022-07-04] MEDS ORDERED: MUPIROCIN 2% TOPICAL OINTMENT FOR DECOLONIZATION NS SCH (22:00)
[2022-07-04] MEDS ORDERED: CHLORHEXIDINE GLUCONATE 4% CLEANSER FOR DECOLONIZATION TP SCH (22:00)
[2022-07-04] MEDS ORDERED: OXYBUTYNIN CHLORIDE 5 MG TABLET PO SCH (22:00)
[2022-07-04] MEDS: QUEtiapine FUMARATE 100 MG TABLET (FP) PO SCH (22:43)
[2022-07-05] MEDS: DOCUSATE SODIUM 100 MG CAPSULE (FP) PO SCH ×3 (06:31→21:13)
[2022-07-05] MEDS: FAMOTIDINE 20 MG TABLET PO SCH (06:32)
[2022-07-05] MEDS ORDERED: oxyCODONE HCL 5 MG TABLET PO PRN (08:45)
[2022-07-05] MEDS ORDERED: RIMEGEPANT SULFATE 75 MG TAB.RAPDIS SL PRN ×2 (08:45→09:16)
[2022-07-05] MEDS ORDERED: ONDANSETRON 4 MG/2 ML VIAL IVPUSH PRN (08:45)
[2022-07-05] MEDS ORDERED: DEXAMETHASONE SOD PHOSPHATE 4 MG/1 ML VIAL IVPUSH PRN (08:45)
[2022-07-05] MEDS ORDERED: BISACODYL 10 MG SUPP.RECT RC PRN (08:45)
[2022-07-05] MEDS ORDERED: ACETAMINOPHEN 325 MG TABLET (FP) PO PRN (09:33)
[2022-07-05] MEDS ORDERED: diazePAM 5 MG TABLET PO PRN (10:04)
[2022-07-05] MEDS: LIFITEGRAST OU SCH ×2 (10:31→21:18)
[2022-07-05] MEDS: prednisoLONE ACETATE 1% OPHTH SUSP 5 ML BOTTLE OD SCH ×4 (10:32→22:14)
[2022-07-05] MEDS: PIPERACILLIN/TAZOB 3.375 GM 3.375 GM in DEXTROSE 5%-WATER - 50 ML IVPB SCH ×2 (10:32→19:00)
[2022-07-05] MEDS: NON-FORMULARY MED OU SCH ×4 (10:32→21:18)
[2022-07-05] MEDS: TOPIRAMATE 25 MG TABLET PO SCH ×2 (10:32→21:14)
[2022-07-05 11:35] LABS: BASO % 0.2 % (0-2.0); EOS % 1.9 % (0-4.5); HEMATOCRIT 27.1 % (32.4-45.2); HEMOGLOBIN 9.4 GM/dL (10.7-15.3); LYMPH % 14.7 % (8-40); MCH 31.2 pg (25.7-33.7); MCHC 34.6 g/dl (32.0-36.0); MEAN CELL VOLUME 90.2 fl (80-96); MEAN PLT VOLUME 9.5 fl (7.5-11.1); MONO % 11.6 % (3.8-10.2); NEUT % 71.6 % (42.8-82.8); PLATELET COUNT 148 10^3/uL (134-434); RBC 3.01 M/mm3 (3.60-5.2); RDW 13.3 % (11.6-15.6); WHITE BLOOD COUNT 8.1 K/mm3 (4.0-10.0)
[2022-07-05] MEDS: oxyCODONE HCL 5 MG TABLET PO PRN ×2 (11:42→17:27)
[2022-07-05] MEDS: ACETAMINOPHEN 500 MG TABLET (FP) PO PRN (11:46)
[2022-07-05] MEDS: GABAPENTIN ENACARBIL 600 MG PO SCH ×2 (11:47→21:18)
[2022-07-05] MEDS ORDERED: AMINO ACIDS/PROTEIN HYDROLYS 30 ML LIQUID.PKT PO SCH (12:00)
[2022-07-05] MEDS: AMINO ACIDS/PROTEIN HYDROLYS 30 ML LIQUID.PKT PO SCH (12:02)
[2022-07-05 12:17] LABS: CALCIUM 7.9 mg/dL (8.5-10.1)
[2022-07-05 12:18] LABS: BLOOD UREA NITROGEN 9.6 mg/dL (7-18)
[2022-07-05 12:21] LABS: CREATININE 1.1 mg/dL (0.55-1.3)
[2022-07-05] MEDS ORDERED: PANTOPRAZOLE 40 MG TABLET PO SCH (17:30)
[2022-07-05] MEDS: VANCOMYCIN/WATER FOR INJ (PEG) 1,000 MG/200 ML BAG IVPB SCH (17:45)
[2022-07-05] MEDS: QUEtiapine FUMARATE 100 MG TABLET (FP) PO SCH (21:13)
[2022-07-05] MEDS: OXYBUTYNIN CHLORIDE 5 MG TABLET PO SCH (21:18)
[2022-07-06] MEDS: LACTATED RINGERS SOLUTION 1,000 ML/1,000 ML INFUS.BAG IV SCH ×2 (04:35→09:10)
[2022-07-06] MEDS: oxyCODONE HCL 5 MG TABLET PO PRN ×2 (06:05→12:33)
[2022-07-06] MEDS: VANCOMYCIN/WATER FOR INJ (PEG) 1,000 MG/200 ML BAG IVPB SCH ×2 (06:07→18:29)
[2022-07-06] MEDS: DOCUSATE SODIUM 100 MG CAPSULE (FP) PO SCH ×3 (06:07→21:39)
[2022-07-06] MEDS ORDERED: FAMOTIDINE 20 MG TABLET PO SCH (07:00)
[2022-07-06] MEDS ORDERED: PANTOPRAZOLE 40 MG TABLET PO SCH (08:30)
[2022-07-06] MEDS: AMINO ACIDS/PROTEIN HYDROLYS 30 ML LIQUID.PKT PO SCH (08:44)
[2022-07-06] MEDS: TOPIRAMATE 25 MG TABLET PO SCH ×2 (09:08→21:39)
[2022-07-06] MEDS: PIPERACILLIN/TAZOB 3.375 GM 3.375 GM in DEXTROSE 5%-WATER - 50 ML IVPB SCH ×2 (09:09→17:45)
[2022-07-06] MEDS: prednisoLONE ACETATE 1% OPHTH SUSP 5 ML BOTTLE OD SCH ×4 (09:17→21:44)
[2022-07-06] MEDS: LIFITEGRAST OU SCH ×2 (09:17→21:59)
[2022-07-06] MEDS: GABAPENTIN ENACARBIL 600 MG PO SCH ×2 (09:17→21:42)
[2022-07-06] MEDS: NON-FORMULARY MED OU SCH ×4 (09:17→21:59)
[2022-07-06] MEDS: PANTOPRAZOLE 40 MG TABLET PO SCH ×2 (10:17→18:12)
[2022-07-06] MEDS ORDERED: MAGNESIUM CITRATE 300 ML BOTTLE PO ONE (10:30)
[2022-07-06] MEDS ORDERED: MAGNESIUM HYDROX 2400MG/30ML ORAL SUSPENSION 30 ML CUP PO ONE ×2 (11:00→14:45)
[2022-07-06] MEDS: diazePAM 5 MG TABLET PO PRN ×2 (13:50→21:57)
[2022-07-06] MEDS: ACETAMINOPHEN 500 MG TABLET (FP) PO PRN (15:32)
[2022-07-06] MEDS: QUEtiapine FUMARATE 100 MG TABLET (FP) PO SCH (21:39)
[2022-07-06] MEDS: OXYBUTYNIN CHLORIDE 5 MG TABLET PO SCH (21:40)
[2022-07-07] MEDS: PIPERACILLIN/TAZOB 3.375 GM 3.375 GM in DEXTROSE 5%-WATER - 50 ML IVPB SCH ×4 (04:27→22:43)
[2022-07-07] MEDS: DOCUSATE SODIUM 100 MG CAPSULE (FP) PO SCH ×3 (06:58→21:37)
[2022-07-07] MEDS: PANTOPRAZOLE 40 MG TABLET PO SCH ×2 (06:58→17:26)
[2022-07-07] MEDS: VANCOMYCIN/WATER FOR INJ (PEG) 1,000 MG/200 ML BAG IVPB SCH ×2 (06:58→18:30)
[2022-07-07] MEDS: AMINO ACIDS/PROTEIN HYDROLYS 30 ML LIQUID.PKT PO SCH (07:47)
[2022-07-07 08:26] LABS: BASO % 0.6 % (0-2.0); EOS % 2.9 % (0-4.5); HEMATOCRIT 28.6 % (32.4-45.2); HEMOGLOBIN 9.6 GM/dL (10.7-15.3); LYMPH % 16.4 % (8-40); MCH 30.3 pg (25.7-33.7); MCHC 33.4 g/dl (32.0-36.0); MEAN CELL VOLUME 90.8 fl (80-96); MEAN PLT VOLUME 9.5 fl (7.5-11.1); MONO % 11.3 % (3.8-10.2); NEUT % 68.8 % (42.8-82.8); PLATELET COUNT 203 10^3/uL (134-434); RBC 3.15 M/mm3 (3.60-5.2); RDW 13.2 % (11.6-15.6); WHITE BLOOD COUNT 10.2 K/mm3 (4.0-10.0)
[2022-07-07 09:00] LABS: CHLORIDE 114 mmol/L (98-107); SODIUM 144 mmol/L (136-145)
[2022-07-07 09:02] LABS: CALCIUM 8.2 mg/dL (8.5-10.1)
[2022-07-07 09:03] LABS: ALBUMIN 2.5 g/dl (3.4-5.0); ANION GAP 7 MMOL/L (8-16); BLOOD UREA NITROGEN 10.8 mg/dL (7-18); CO2 23 mmol/L (21-32); GLUCOSE,RANDOM 118 mg/dL (74-106); MAGNESIUM 2.2 mg/dL (1.8-2.4)
[2022-07-07 09:06] LABS: CREATININE 1.1 mg/dL (0.55-1.3); SGOT/AST 55 U/L (15-37); SGPT/ALT 33 U/L (13-61)
[2022-07-07 09:08] LABS: BILIRUBIN,TOTAL 0.7 mg/dL (0.2-1); TOT PROT 6.4 g/dl (6.4-8.2)
[2022-07-07 09:11] LABS: ALK PHOS 318 U/L (45-117); PHOSPHOROUS 0.9 mg/dL (2.5-4.9)
[2022-07-07] MEDS: TOPIRAMATE 25 MG TABLET PO SCH ×2 (09:14→21:35)
[2022-07-07] MEDS: LIFITEGRAST OU SCH ×2 (09:21→21:37)
[2022-07-07] MEDS: GABAPENTIN ENACARBIL 600 MG PO SCH ×2 (09:21→21:37)
[2022-07-07] MEDS: NON-FORMULARY MED OU SCH ×4 (09:21→21:37)
[2022-07-07] MEDS: prednisoLONE ACETATE 1% OPHTH SUSP 5 ML BOTTLE OD SCH ×4 (09:21→21:37)
[2022-07-07] MEDS: ACETAMINOPHEN 500 MG TABLET (FP) PO PRN (10:14)
[2022-07-07] MEDS: NAPH,MB-DB/K PH,MBDB POWDER PACKET PO SCH ×2 (13:42→21:37)
[2022-07-07] MEDS ORDERED: SODIUM PHOSPHATE - 40 MM in DEXTROSE 5%-WATER - 250 ML IVPB ONE (17:18)
[2022-07-07] MEDS ORDERED: SODIUM PHOSPHATE - 30 MM in SODIUM CHLORIDE 500 ML IVPB ONE (19:37)
[2022-07-07] MEDS: oxyCODONE HCL 5 MG TABLET PO PRN (20:04)
[2022-07-07] MEDS: LACTATED RINGERS SOLUTION 1,000 ML/1,000 ML INFUS.BAG IV SCH (21:36)
[2022-07-07] MEDS: OXYBUTYNIN CHLORIDE 5 MG TABLET PO SCH (21:37)
[2022-07-07] MEDS: QUEtiapine FUMARATE 100 MG TABLET (FP) PO SCH (21:37)
[2022-07-08] MEDS: PIPERACILLIN/TAZOB 3.375 GM 3.375 GM in DEXTROSE 5%-WATER - 50 ML IVPB SCH ×3 (01:28→17:53)
[2022-07-08] MEDS: DOCUSATE SODIUM 100 MG CAPSULE (FP) PO SCH ×3 (06:22→21:15)
[2022-07-08] MEDS: NAPH,MB-DB/K PH,MBDB POWDER PACKET PO SCH ×3 (06:22→21:16)
[2022-07-08] MEDS: VANCOMYCIN/WATER FOR INJ (PEG) 1,000 MG/200 ML BAG IVPB SCH ×2 (06:26→17:53)
[2022-07-08] MEDS: PANTOPRAZOLE 40 MG TABLET PO SCH ×2 (07:30→17:02)
[2022-07-08 08:38] LABS: HEMATOCRIT 25.8 % (32.4-45.2); HEMOGLOBIN 8.8 GM/dL (10.7-15.3); MCH 31.5 pg (25.7-33.7); MCHC 34.2 g/dl (32.0-36.0); MEAN CELL VOLUME 92.1 fl (80-96); MEAN PLT VOLUME 8.7 fl (7.5-11.1); PLATELET COUNT 232 10^3/uL (134-434); RDW 13.5 % (11.6-15.6); WHITE BLOOD COUNT 7.4 K/mm3 (4.0-10.0)
[2022-07-08 09:02] LABS: BLOOD UREA NITROGEN 8.4 mg/dL (7-18); CALCIUM 8.3 mg/dL (8.5-10.1); MAGNESIUM 2.4 mg/dL (1.8-2.4); PHOSPHOROUS 2.7 mg/dL (2.5-4.9)
[2022-07-08 09:03] LABS: ALBUMIN 2.4 g/dl (3.4-5.0)
[2022-07-08 09:06] LABS: BILIRUBIN,TOTAL 0.6 mg/dL (0.2-1)
[2022-07-08 09:08] LABS: TOT PROT 6.1 g/dl (6.4-8.2)
[2022-07-08 09:31] LABS: ANISOCYTOSIS 2+; MACROCYTOSIS 0
[2022-07-08] MEDS: TOPIRAMATE 25 MG TABLET PO SCH ×2 (09:32→21:15)
[2022-07-08] MEDS: AMINO ACIDS/PROTEIN HYDROLYS 30 ML LIQUID.PKT PO SCH (09:33)
[2022-07-08] MEDS: GABAPENTIN ENACARBIL 600 MG PO SCH ×2 (09:33→21:41)
[2022-07-08] MEDS: prednisoLONE ACETATE 1% OPHTH SUSP 5 ML BOTTLE OD SCH ×4 (09:34→21:20)
[2022-07-08] MEDS: NON-FORMULARY MED OU SCH ×4 (09:46→21:42)
[2022-07-08] MEDS: LIFITEGRAST OU SCH ×2 (09:46→21:33)
[2022-07-08] MEDS: LACTATED RINGERS SOLUTION 1,000 ML/1,000 ML INFUS.BAG IV SCH ×2 (09:51→21:08)
[2022-07-08] MEDS ORDERED: OXYBUTYNIN CHLORIDE 5 MG TABLET PO ONE (16:03)
[2022-07-08] MEDS: oxyCODONE HCL 5 MG TABLET PO PRN (17:01)
[2022-07-08] MEDS: LACTOBACILLUS ACIDOPHILUS 1 TABLET PO SCH (17:01)
[2022-07-08] MEDS ORDERED: RIMEGEPANT SULFATE 75 MG TAB.RAPDIS SL PRN (19:35)
[2022-07-08] MEDS ORDERED: ONDANSETRON 4 MG/2 ML VIAL IVPUSH PRN (19:35)
[2022-07-08] MEDS ORDERED: ACETAMINOPHEN 500 MG TABLET (FP) PO PRN (19:35)
[2022-07-08] MEDS ORDERED: BISACODYL 10 MG SUPP.RECT RC PRN (19:35)
[2022-07-08] MEDS ORDERED: DEXAMETHASONE SOD PHOSPHATE 4 MG/1 ML VIAL IVPUSH PRN (19:35)
[2022-07-08] MEDS: QUEtiapine FUMARATE 100 MG TABLET (FP) PO SCH (21:15)
[2022-07-08] MEDS: OXYBUTYNIN CHLORIDE 5 MG TABLET PO SCH (21:54)
[2022-07-09] MEDS ORDERED: PIPERACILLIN/TAZOBACTAM 3.375 GM VIAL IVPB ONE (01:59)
[2022-07-09] MEDS: PIPERACILLIN/TAZOB 3.375 GM 3.375 GM in DEXTROSE 5%-WATER - 50 ML IVPB SCH ×2 (02:16→09:33)
[2022-07-09] MEDS: oxyCODONE HCL 5 MG TABLET PO PRN (04:37)
[2022-07-09] MEDS ORDERED: VANCOMYCIN/WATER FOR INJ (PEG) 1,000 MG/200 ML BAG IVPB SCH (06:00)
[2022-07-09] MEDS: LACTATED RINGERS SOLUTION 1,000 ML/1,000 ML INFUS.BAG IV SCH (06:03)
[2022-07-09] MEDS: PANTOPRAZOLE 40 MG TABLET PO SCH ×2 (07:01→17:23)
[2022-07-09] MEDS: NAPH,MB-DB/K PH,MBDB POWDER PACKET PO SCH ×3 (07:02→22:09)
[2022-07-09] MEDS: DOCUSATE SODIUM 100 MG CAPSULE (FP) PO SCH ×3 (07:02→22:10)
[2022-07-09] MEDS: AMINO ACIDS/PROTEIN HYDROLYS 30 ML LIQUID.PKT PO SCH (09:33)
[2022-07-09] MEDS: GABAPENTIN ENACARBIL 600 MG PO SCH ×2 (09:34→22:12)
[2022-07-09] MEDS: TOPIRAMATE 25 MG TABLET PO SCH ×2 (09:34→22:09)
[2022-07-09] MEDS: LACTOBACILLUS ACIDOPHILUS 1 TABLET PO SCH (09:35)
[2022-07-09] MEDS: NON-FORMULARY MED OU SCH ×4 (09:36→22:13)
[2022-07-09] MEDS: prednisoLONE ACETATE 1% OPHTH SUSP 5 ML BOTTLE OD SCH ×4 (09:36→22:11)
[2022-07-09] MEDS: LIFITEGRAST OU SCH ×2 (09:36→22:12)
[2022-07-09 12:00] LABS: HEMATOCRIT 25.2 % (32.4-45.2); HEMOGLOBIN 8.5 GM/dL (10.7-15.3); MCH 31.1 pg (25.7-33.7); MCHC 33.7 g/dl (32.0-36.0); MEAN CELL VOLUME 92.1 fl (80-96); MEAN PLT VOLUME 8.5 fl (7.5-11.1); PLATELET COUNT 284 10^3/uL (134-434); RBC 2.74 M/mm3 (3.60-5.2); RDW 13.7 % (11.6-15.6); WHITE BLOOD COUNT 6.9 K/mm3 (4.0-10.0)
[2022-07-09 12:55] LABS: CALCIUM 8.2 mg/dL (8.5-10.1)
[2022-07-09 12:56] LABS: ALBUMIN 2.4 g/dl (3.4-5.0); BLOOD UREA NITROGEN 7.8 mg/dL (7-18); MAGNESIUM 2.5 mg/dL (1.8-2.4)
[2022-07-09 12:59] LABS: BILIRUBIN,TOTAL 0.4 mg/dL (0.2-1); PHOSPHOROUS 2.2 mg/dL (2.5-4.9); TOT PROT 6.1 g/dl (6.4-8.2)
[2022-07-09 13:19] LABS: ANISOCYTOSIS 2+; MACROCYTOSIS 0
[2022-07-09] MEDS: CYCLOBENZAPRINE HCL 5 MG TABLET PO SCH ×2 (14:17→22:09)
[2022-07-09] MEDS: QUEtiapine FUMARATE 100 MG TABLET (FP) PO SCH (22:10)
[2022-07-09] MEDS: OXYBUTYNIN CHLORIDE 5 MG TABLET PO SCH (23:02)
[2022-07-10] MEDS: CYCLOBENZAPRINE HCL 5 MG TABLET PO SCH ×3 (05:48→21:30)
[2022-07-10] MEDS: DOCUSATE SODIUM 100 MG CAPSULE (FP) PO SCH ×3 (05:48→21:31)
[2022-07-10] MEDS: NAPH,MB-DB/K PH,MBDB POWDER PACKET PO SCH ×3 (05:48→21:30)
[2022-07-10] MEDS: PANTOPRAZOLE 40 MG TABLET PO SCH ×2 (06:59→17:07)
[2022-07-10] MEDS: AMINO ACIDS/PROTEIN HYDROLYS 30 ML LIQUID.PKT PO SCH (08:11)
[2022-07-10] MEDS ORDERED: BISACODYL 5 MG TABLET.DR (FP) PO ONE (08:48)
[2022-07-10 10:23] LABS: HEMATOCRIT 28.5 % (32.4-45.2); HEMOGLOBIN 9.3 GM/dL (10.7-15.3); MCH 30.1 pg (25.7-33.7); MCHC 32.7 g/dl (32.0-36.0); MEAN CELL VOLUME 92.1 fl (80-96); MEAN PLT VOLUME 8.6 fl (7.5-11.1); PLATELET COUNT 378 10^3/uL (134-434); RBC 3.09 M/mm3 (3.60-5.2); RDW 13.8 % (11.6-15.6); WHITE BLOOD COUNT 8.3 K/mm3 (4.0-10.0)
[2022-07-10] MEDS: TOPIRAMATE 25 MG TABLET PO SCH ×2 (10:38→21:29)
[2022-07-10] MEDS: LACTOBACILLUS ACIDOPHILUS 1 TABLET PO SCH (10:40)
[2022-07-10] MEDS: LIFITEGRAST OU SCH ×2 (10:42→21:33)
[2022-07-10] MEDS: prednisoLONE ACETATE 1% OPHTH SUSP 5 ML BOTTLE OD SCH ×4 (10:42→21:33)
[2022-07-10] MEDS: GABAPENTIN ENACARBIL 600 MG PO SCH ×2 (10:42→21:33)
[2022-07-10] MEDS: NON-FORMULARY MED OU SCH ×4 (10:42→21:33)
[2022-07-10 10:48] LABS: CALCIUM 9.2 mg/dL (8.5-10.1)
[2022-07-10 10:49] LABS: ALBUMIN 2.8 g/dl (3.4-5.0); BLOOD UREA NITROGEN 10.4 mg/dL (7-18); MAGNESIUM 2.5 mg/dL (1.8-2.4)
[2022-07-10 10:53] LABS: CREATININE 0.9 mg/dL (0.55-1.3); PHOSPHOROUS 2.9 mg/dL (2.5-4.9)
[2022-07-10 10:54] LABS: BILIRUBIN,TOTAL 0.5 mg/dL (0.2-1)
[2022-07-10 11:09] LABS: ANISOCYTOSIS 1+; MACROCYTOSIS 0
[2022-07-10] MEDS: oxyCODONE HCL 5 MG TABLET PO PRN (19:04)
[2022-07-10] MEDS: OXYBUTYNIN CHLORIDE 5 MG TABLET PO SCH (21:30)
[2022-07-10] MEDS: QUEtiapine FUMARATE 100 MG TABLET (FP) PO SCH (21:30)
[2022-07-11] MEDS: NAPH,MB-DB/K PH,MBDB POWDER PACKET PO SCH ×3 (06:42→21:42)
[2022-07-11] MEDS: PANTOPRAZOLE 40 MG TABLET PO SCH ×2 (06:42→17:17)
[2022-07-11] MEDS: DOCUSATE SODIUM 100 MG CAPSULE (FP) PO SCH ×3 (06:42→21:40)
[2022-07-11] MEDS: CYCLOBENZAPRINE HCL 5 MG TABLET PO SCH ×3 (06:42→21:40)
[2022-07-11] MEDS ORDERED: FLUCONAZOLE 150 MG TABLET PO ONE (08:25)
[2022-07-11] MEDS: oxyCODONE HCL 5 MG TABLET PO PRN (08:36)
[2022-07-11] MEDS: AMINO ACIDS/PROTEIN HYDROLYS 30 ML LIQUID.PKT PO SCH (08:37)
[2022-07-11] MEDS ORDERED: levoFLOXacin 750 MG TABLET PO SCH (08:45)
[2022-07-11] MEDS: LACTOBACILLUS ACIDOPHILUS 1 TABLET PO SCH (09:03)
[2022-07-11] MEDS: TOPIRAMATE 25 MG TABLET PO SCH ×2 (09:03→21:40)
[2022-07-11] MEDS: prednisoLONE ACETATE 1% OPHTH SUSP 5 ML BOTTLE OD SCH ×4 (09:08→21:47)
[2022-07-11] MEDS: NON-FORMULARY MED OU SCH ×4 (09:08→21:50)
[2022-07-11] MEDS: LIFITEGRAST OU SCH ×2 (09:08→21:50)
[2022-07-11] MEDS: GABAPENTIN ENACARBIL 600 MG PO SCH ×2 (09:08→21:42)
[2022-07-11] MEDS ORDERED: VANCOMYCIN/WATER FOR INJ (PEG) 1,000 MG/200 ML BAG IVPB SCH (18:00)
[2022-07-11] MEDS ORDERED: PIPERACILLIN/TAZOBACTAM 3.375 GM VIAL IVPB ONE (18:22)
[2022-07-11] MEDS: PIPERACILLIN/TAZOB 3.375 GM 3.375 GM in DEXTROSE 5%-WATER - 50 ML IVPB SCH (18:51)
[2022-07-11] MEDS: QUEtiapine FUMARATE 100 MG TABLET (FP) PO SCH (21:40)
[2022-07-12] MEDS: PIPERACILLIN/TAZOB 3.375 GM 3.375 GM in DEXTROSE 5%-WATER - 50 ML IVPB SCH ×2 (05:24→10:38)
[2022-07-12] MEDS: NAPH,MB-DB/K PH,MBDB POWDER PACKET PO SCH ×3 (05:37→21:50)
[2022-07-12] MEDS: CYCLOBENZAPRINE HCL 5 MG TABLET PO SCH ×3 (05:38→21:49)
[2022-07-12] MEDS: DOCUSATE SODIUM 100 MG CAPSULE (FP) PO SCH ×3 (05:38→21:49)
[2022-07-12] MEDS: PANTOPRAZOLE 40 MG TABLET PO SCH ×2 (07:02→16:57)
[2022-07-12] MEDS: AMINO ACIDS/PROTEIN HYDROLYS 30 ML LIQUID.PKT PO SCH (10:38)
[2022-07-12] MEDS: TOPIRAMATE 25 MG TABLET PO SCH ×2 (10:38→21:49)
[2022-07-12] MEDS: LACTOBACILLUS ACIDOPHILUS 1 TABLET PO SCH (10:38)
[2022-07-12] MEDS: prednisoLONE ACETATE 1% OPHTH SUSP 5 ML BOTTLE OD SCH ×4 (10:38→21:56)
[2022-07-12] MEDS: GABAPENTIN ENACARBIL 600 MG PO SCH ×2 (10:39→21:52)
[2022-07-12] MEDS: NON-FORMULARY MED OU SCH ×4 (10:39→21:56)
[2022-07-12] MEDS: LIFITEGRAST OU SCH ×2 (10:39→21:55)
[2022-07-12 15:21] LABS: BASO % 0.3 % (0-2.0); EOS % 2.6 % (0-4.5); HEMATOCRIT 30.3 % (32.4-45.2); LYMPH % 17.8 % (8-40); MCH 30.2 pg (25.7-33.7); MCHC 32.9 g/dl (32.0-36.0); MEAN CELL VOLUME 91.7 fl (80-96); MEAN PLT VOLUME 8.2 fl (7.5-11.1); MONO % 8.6 % (3.8-10.2); NEUT % 70.7 % (42.8-82.8); PLATELET COUNT 434 10^3/uL (134-434); RBC 3.31 M/mm3 (3.60-5.2); RDW 13.8 % (11.6-15.6); WHITE BLOOD COUNT 8.1 K/mm3 (4.0-10.0)
[2022-07-12 15:42] LABS: CALCIUM 8.5 mg/dL (8.5-10.1)
[2022-07-12 15:43] LABS: ALBUMIN 2.6 g/dl (3.4-5.0); BLOOD UREA NITROGEN 11.9 mg/dL (7-18); MAGNESIUM 2.4 mg/dL (1.8-2.4)
[2022-07-12 15:46] LABS: CREATININE 1.1 mg/dL (0.55-1.3); PHOSPHOROUS 2.8 mg/dL (2.5-4.9)
[2022-07-12 15:48] LABS: BILIRUBIN,TOTAL 0.3 mg/dL (0.2-1); TOT PROT 6.8 g/dl (6.4-8.2)
[2022-07-12] MEDS: QUEtiapine FUMARATE 100 MG TABLET (FP) PO SCH (21:49)
[2022-07-12] MEDS: ENOXAPARIN NA (PORCINE) 80 MG/0.8 ML DISP.SYRIN SQ SCH (21:50)
[2022-07-13] MEDS ORDERED: ACETAMINOPHEN 500 MG TABLET (FP) PO ONE (02:13)
[2022-07-13] MEDS: NAPH,MB-DB/K PH,MBDB POWDER PACKET PO SCH ×3 (06:37→22:11)
[2022-07-13] MEDS: CYCLOBENZAPRINE HCL 5 MG TABLET PO SCH ×3 (06:37→22:10)
[2022-07-13] MEDS: PANTOPRAZOLE 40 MG TABLET PO SCH ×2 (06:37→17:36)
[2022-07-13] MEDS: DOCUSATE SODIUM 100 MG CAPSULE (FP) PO SCH ×3 (06:37→22:10)
[2022-07-13] MEDS: AMINO ACIDS/PROTEIN HYDROLYS 30 ML LIQUID.PKT PO SCH (08:53)
[2022-07-13] MEDS: ENOXAPARIN NA (PORCINE) 80 MG/0.8 ML DISP.SYRIN SQ SCH ×2 (09:59→22:10)
[2022-07-13] MEDS: LACTOBACILLUS ACIDOPHILUS 1 TABLET PO SCH (09:59)
[2022-07-13] MEDS: NON-FORMULARY MED OU SCH ×4 (10:00→22:39)
[2022-07-13] MEDS: GABAPENTIN ENACARBIL 600 MG PO SCH ×2 (10:00→22:32)
[2022-07-13] MEDS: prednisoLONE ACETATE 1% OPHTH SUSP 5 ML BOTTLE OD SCH ×4 (10:00→22:30)
[2022-07-13] MEDS: LIFITEGRAST OU SCH ×2 (10:00→22:39)
[2022-07-13] MEDS: TOPIRAMATE 25 MG TABLET PO SCH ×2 (10:00→22:10)
[2022-07-13 10:19] LABS: BASO % 0.4 % (0-2.0); EOS % 3.4 % (0-4.5); HEMATOCRIT 30.4 % (32.4-45.2); HEMOGLOBIN 10.1 GM/dL (10.7-15.3); LYMPH % 23.3 % (8-40); MCHC 33.4 g/dl (32.0-36.0); MEAN CELL VOLUME 92.8 fl (80-96); MONO % 7.9 % (3.8-10.2); PLATELET COUNT 467 10^3/uL (134-434); RBC 3.27 M/mm3 (3.60-5.2); RDW 13.7 % (11.6-15.6); WHITE BLOOD COUNT 7.1 K/mm3 (4.0-10.0)
[2022-07-13 10:54] LABS: CALCIUM 8.9 mg/dL (8.5-10.1)
[2022-07-13 10:55] LABS: ALBUMIN 2.8 g/dl (3.4-5.0); BLOOD UREA NITROGEN 9.4 mg/dL (7-18); MAGNESIUM 2.6 mg/dL (1.8-2.4)
[2022-07-13 11:00] LABS: BILIRUBIN,TOTAL 0.4 mg/dL (0.2-1); TOT PROT 7.2 g/dl (6.4-8.2)
[2022-07-13] MEDS: QUEtiapine FUMARATE 100 MG TABLET (FP) PO SCH (22:10)
[2022-07-14] MEDS: NAPH,MB-DB/K PH,MBDB POWDER PACKET PO SCH ×3 (06:08→21:10)
[2022-07-14] MEDS: DOCUSATE SODIUM 100 MG CAPSULE (FP) PO SCH ×3 (06:08→21:10)
[2022-07-14] MEDS: CYCLOBENZAPRINE HCL 5 MG TABLET PO SCH ×3 (06:08→21:10)
[2022-07-14] MEDS: PANTOPRAZOLE 40 MG TABLET PO SCH ×2 (09:23→16:29)
[2022-07-14] MEDS: AMINO ACIDS/PROTEIN HYDROLYS 30 ML LIQUID.PKT PO SCH (09:23)
[2022-07-14] MEDS: ENOXAPARIN NA (PORCINE) 80 MG/0.8 ML DISP.SYRIN SQ SCH ×2 (09:25→21:11)
[2022-07-14] MEDS: LACTOBACILLUS ACIDOPHILUS 1 TABLET PO SCH (09:27)
[2022-07-14] MEDS: TOPIRAMATE 25 MG TABLET PO SCH ×2 (09:27→21:10)
[2022-07-14] MEDS: GABAPENTIN ENACARBIL 600 MG PO SCH ×2 (09:35→21:12)
[2022-07-14] MEDS: NON-FORMULARY MED OU SCH ×4 (09:40→22:00)
[2022-07-14] MEDS: LIFITEGRAST OU SCH ×2 (09:40→22:00)
[2022-07-14] MEDS: prednisoLONE ACETATE 1% OPHTH SUSP 5 ML BOTTLE OD SCH ×4 (09:41→22:00)
[2022-07-14] MEDS: oxyCODONE HCL 5 MG TABLET PO PRN (11:25)
[2022-07-14] MEDS ORDERED: IRON SUCROSE INJECTION 200 MG in SODIUM CHLORIDE 90 ML IVPB ONE (16:00)
[2022-07-14] MEDS: QUEtiapine FUMARATE 100 MG TABLET (FP) PO SCH (21:10)
[2022-07-15] MEDS: NAPH,MB-DB/K PH,MBDB POWDER PACKET PO SCH ×3 (06:15→21:32)
[2022-07-15] MEDS: CYCLOBENZAPRINE HCL 5 MG TABLET PO SCH ×3 (06:15→21:33)
[2022-07-15] MEDS: DOCUSATE SODIUM 100 MG CAPSULE (FP) PO SCH ×3 (06:15→21:34)
[2022-07-15] MEDS: AMINO ACIDS/PROTEIN HYDROLYS 30 ML LIQUID.PKT PO SCH (08:31)
[2022-07-15] MEDS: PANTOPRAZOLE 40 MG TABLET PO SCH ×2 (08:31→17:05)
[2022-07-15 09:12] LABS: BASO % 0.7 % (0-2.0); EOS % 4.4 % (0-4.5); HEMATOCRIT 33.4 % (32.4-45.2); HEMOGLOBIN 10.8 GM/dL (10.7-15.3); LYMPH % 30.8 % (8-40); MCH 29.6 pg (25.7-33.7); MCHC 32.4 g/dl (32.0-36.0); MEAN CELL VOLUME 91.5 fl (80-96); MONO % 9.4 % (3.8-10.2); NEUT % 54.7 % (42.8-82.8); PLATELET COUNT 577 10^3/uL (134-434); RBC 3.65 M/mm3 (3.60-5.2); RDW 13.6 % (11.6-15.6); WHITE BLOOD COUNT 4.7 K/mm3 (4.0-10.0)
[2022-07-15 10:03] LABS: BLOOD UREA NITROGEN 13.2 mg/dL (7-18); CALCIUM 9.2 mg/dL (8.5-10.1)
[2022-07-15 10:08] LABS: BILIRUBIN,TOTAL 0.3 mg/dL (0.2-1); TOT PROT 7.5 g/dl (6.4-8.2)
[2022-07-15] MEDS: TOPIRAMATE 25 MG TABLET PO SCH ×2 (10:18→21:33)
[2022-07-15] MEDS: LACTOBACILLUS ACIDOPHILUS 1 TABLET PO SCH (10:21)
[2022-07-15] MEDS: ENOXAPARIN NA (PORCINE) 80 MG/0.8 ML DISP.SYRIN SQ SCH ×2 (10:22→21:33)
[2022-07-15] MEDS: LIFITEGRAST OU SCH ×2 (10:23→21:46)
[2022-07-15] MEDS: GABAPENTIN ENACARBIL 600 MG PO SCH ×2 (10:25→21:46)
[2022-07-15] MEDS: NON-FORMULARY MED OU SCH ×4 (10:54→21:46)
[2022-07-15] MEDS: prednisoLONE ACETATE 1% OPHTH SUSP 5 ML BOTTLE OD SCH ×4 (10:54→21:46)
[2022-07-15] MEDS: QUEtiapine FUMARATE 100 MG TABLET (FP) PO SCH (21:33)
[2022-07-15] MEDS: oxyCODONE HCL 5 MG TABLET PO PRN (21:33)
[2022-07-16] MEDS: CYCLOBENZAPRINE HCL 5 MG TABLET PO SCH (05:00)
[2022-07-16] MEDS: NAPH,MB-DB/K PH,MBDB POWDER PACKET PO SCH (05:00)
[2022-07-16] MEDS: DOCUSATE SODIUM 100 MG CAPSULE (FP) PO SCH (05:01)
[2022-07-16] MEDS: PANTOPRAZOLE 40 MG TABLET PO SCH (07:18)
[2022-07-16] MEDS: AMINO ACIDS/PROTEIN HYDROLYS 30 ML LIQUID.PKT PO SCH (08:33)
[2022-07-16] MEDS: LACTOBACILLUS ACIDOPHILUS 1 TABLET PO SCH (09:19)
[2022-07-16] MEDS: TOPIRAMATE 25 MG TABLET PO SCH (09:19)
[2022-07-16] MEDS: oxyCODONE HCL 5 MG TABLET PO PRN (09:19)
[2022-07-16] MEDS: ENOXAPARIN NA (PORCINE) 80 MG/0.8 ML DISP.SYRIN SQ SCH (09:20)
[2022-07-16] MEDS: GABAPENTIN ENACARBIL 600 MG PO SCH (09:21)
[2022-07-16] MEDS: prednisoLONE ACETATE 1% OPHTH SUSP 5 ML BOTTLE OD SCH (09:22)
[2022-07-16] MEDS: LIFITEGRAST OU SCH (09:22)
[2022-07-16] MEDS: NON-FORMULARY MED OU SCH (09:22)
[2022-07-16 10:30] VITALS: BP 138/66; PULSE 92; RESP 18; TEMP 98.8
== END 2022-07-16 14:19 | DRG 453 ==
LOC: J2C 07-01 04:22 → J6S 07-01 20:13 → UNDODISIN 07-04 13:55 → J4W 07-05 04:52 → J6S 07-08 13:36
PROVIDERS: ADMIT Neurological Surgery; ATTEND Neurological Surgery
PROC: 0SG1071 Fusion of 2 or more Lumbar Vertebral Joints with Autologous Tissue Substitute, Posterior Approach, Posterior Column, Open Approach (ICD-10-PCS; 2022-07-01)
PROC: 0SB20ZZ Excision of Lumbar Vertebral Disc, Open Approach (ICD-10-PCS; 2022-07-01)
PROC: 00NY0ZZ Release Lumbar Spinal Cord, Open Approach (ICD-10-PCS; 2022-07-01)
PROC: 0SP004Z Removal of Internal Fixation Device from Lumbar Vertebral Joint, Open Approach (ICD-10-PCS; 2022-07-01)
PROC: 4A1004G Monitoring of Central Nervous Electrical Activity, Intraoperative, Open Approach (ICD-10-PCS; 2022-07-01)
PROC: 0SG00AJ Fusion of Lumbar Vertebral Joint with Interbody Fusion Device, Posterior Approach, Anterior Column, Open Approach (ICD-10-PCS; principal; 2022-07-01 07:30)
DX: M51.26 Other intervertebral disc displacement, lumbar region (principal); G93.41 Metabolic encephalopathy; T81.44XA Sepsis following a procedure, initial encounter; I82.402 Acute embolism and thrombosis of unspecified deep veins of left lower extremity; M54.16 Radiculopathy, lumbar region; M40.209 Unspecified kyphosis, site unspecified; E83.39 Other disorders of phosphorus metabolism; D50.9 Iron deficiency anemia, unspecified; F32.A Depression, unspecified; Y83.9 Surgical procedure, unspecified as the cause of abnormal reaction of the patient, or of later complication, without mention of misadventure at the time of the procedure; E87.6 Hypokalemia
CPT/HCPCS: 36415; 70450-TC; 71045-TC-FY; 72100-TC-FY; 72125-TC; 74018-TC-FY; 76000-TC-FY; 80048; 80051; 80053; 81003; 82540; 82728; 83540; 83550; 83605; 83735; 84100; 84520; 85025; 85027; 85045; 86140; 86850; 86900; 86901; 86922; 87040; 87070; 87077; 87086; 87205; 88300-TC; 88304-TC; 93005; 93010; 93970-TC; 94760; 97116-GP; 97162-GP; C1713; C1889; C9803-CS; U0003; U0005

== ENCOUNTER 2022-09-03 17:46 | Emergency (ER) | payer OTHER, MEDICARE ==
[2022-09-03 18:04] VITALS: TEMP 97.7; BMI 27.4
[2022-09-03 19:31] LABS: BASO % 0.4 % (0-2.0); EOS % 1.9 % (0-4.5); HEMATOCRIT 41.8 % (32.4-45.2); HEMOGLOBIN 13.8 GM/dL (10.7-15.3); LYMPH % 44.6 % (8-40); MCH 29.3 pg (25.7-33.7); MEAN CELL VOLUME 88.7 fl (80-96); MEAN PLT VOLUME 9.8 fl (7.5-11.1); MONO % 6.7 % (3.8-10.2); NEUT % 46.4 % (42.8-82.8); PLATELET COUNT 173 10^3/uL (134-434); RBC 4.72 M/mm3 (3.60-5.2); RDW 13.3 % (11.6-15.6); WHITE BLOOD COUNT 6.1 K/mm3 (4.0-10.0)
[2022-09-03 19:41] LABS: INR 1.07 (0.83-1.09); PROTHROMBIN TIME (PATIENT) 12.3 SEC (9.7-13.0)
[2022-09-03 19:44] LABS: ACTIVATED PTT 34.8 SECONDS (25.2-36.5)
[2022-09-03 19:59] LABS: CALCIUM 9.7 mg/dL (8.5-10.1)
[2022-09-03 20:00] LABS: BLOOD UREA NITROGEN 9.5 mg/dL (7-18)
[2022-09-03 20:02] LABS: CREATININE 1.2 mg/dL (0.55-1.3)
[2022-09-03 20:04] LABS: BILIRUBIN,TOTAL 0.2 mg/dL (0.2-1); TOT PROT 8.3 g/dl (6.4-8.2)
[2022-09-03 23:30] VITALS: BP 130/86; PULSE 76; RESP 18
== END 2022-09-03 23:30 | disposition home or self-care (01) ==
LOC: JER 17:46
DX: R07.9 Chest pain, unspecified (principal)
CPT/HCPCS: 0241U-QW; 36415; 71275-TC; 80053; 84484; 85025; 85610; 85730; 93005; 93010; 99285-25; Q9967

== ENCOUNTER 2022-09-22 14:18 | Inpatient (IN) | payer OTHER, MEDICARE ==
[2022-09-22 18:05] LABS: BASO % 0.4 % (0-2.0); EOS % 1.9 % (0-4.5); HEMATOCRIT 42.3 % (32.4-45.2); HEMOGLOBIN 13.6 GM/dL (10.7-15.3); LYMPH % 48.7 % (8-40); MCH 28.5 pg (25.7-33.7); MCHC 32.1 g/dl (32.0-36.0); MEAN PLT VOLUME 9.1 fl (7.5-11.1); MONO % 10.3 % (3.8-10.2); NEUT % 38.7 % (42.8-82.8); PLATELET COUNT 155 10^3/uL (134-434); RBC 4.76 M/mm3 (3.60-5.2); RDW 13.7 % (11.6-15.6)
[2022-09-22 18:27] LABS: CALCIUM 9.5 mg/dL (8.5-10.1)
[2022-09-22 18:28] LABS: ALBUMIN 3.6 g/dl (3.4-5.0); BLOOD UREA NITROGEN 9.1 mg/dL (7-18)
[2022-09-22 18:31] LABS: CREATININE 1.1 mg/dL (0.55-1.3)
[2022-09-22 18:33] LABS: BILIRUBIN,TOTAL 0.2 mg/dL (0.2-1); TOT PROT 7.8 g/dl (6.4-8.2)
[2022-09-22 20:35] LABS: URINE APPEARANCE CLEAR; URINE BILIRUBIN NEGATIVE (NEGATIVE); URINE COLOR YELLOW; URINE GLUCOSE (UA) NEGATIVE (NEGATIVE); URINE KETONE NEGATIVE (NEGATIVE); URINE LEUK ESTERASE NEGATIVE (NEGATIVE); URINE NITRITE NEGATIVE (NEGATIVE); URINE PROTEIN NEGATIVE (NEGATIVE); URINE UROBILINOGEN 0.2 mg/dL (0.2-1.0)
[2022-09-23] MEDS: APIXABAN 5 MG TABLET PO SCH ×3 (02:35→21:17)
[2022-09-23] MEDS ORDERED: CYCLOBENZAPRINE HCL 5 MG TABLET ONE ×2 (06:23→13:11)
[2022-09-23] MEDS ORDERED: ZOLPIDEM TARTRATE 5 MG TABLET PO PRN ×2 (06:37→14:26)
[2022-09-23] MEDS: CYCLOBENZAPRINE HCL 5 MG TABLET PO SCH ×2 (06:58→13:16)
[2022-09-23 07:53] LABS: HEMATOCRIT 38.7 % (32.4-45.2); HEMOGLOBIN 12.6 GM/dL (10.7-15.3); MCH 28.9 pg (25.7-33.7); MCHC 32.5 g/dl (32.0-36.0); MEAN CELL VOLUME 88.7 fl (80-96); MEAN PLT VOLUME 9.9 fl (7.5-11.1); PLATELET COUNT 153 10^3/uL (134-434); RBC 4.36 M/mm3 (3.60-5.2); RDW 13.5 % (11.6-15.6); WHITE BLOOD COUNT 4.6 K/mm3 (4.0-10.0)
[2022-09-23 08:04] LABS: CALCIUM 8.7 mg/dL (8.5-10.1)
[2022-09-23 08:05] LABS: BLOOD UREA NITROGEN 8.8 mg/dL (7-18)
[2022-09-23 08:06] LABS: MAGNESIUM 2.2 mg/dL (1.8-2.4)
[2022-09-23 08:08] LABS: CREATININE 1.1 mg/dL (0.55-1.3); PHOSPHOROUS 3.6 mg/dL (2.5-4.9)
[2022-09-23 08:10] LABS: BILIRUBIN,TOTAL 0.2 mg/dL (0.2-1); TOT PROT 6.5 g/dl (6.4-8.2)
[2022-09-23] MEDS ORDERED: FAMOTIDINE 20 MG TABLET ONE (08:45)
[2022-09-23] MEDS: FAMOTIDINE 40 MG TABLET PO SCH (09:00)
[2022-09-23] MEDS ORDERED: APIXABAN 5 MG TABLET ONE (09:45)
[2022-09-23] MEDS ORDERED: TOPIRAMATE 25 MG TABLET ONE (09:45)
[2022-09-23] MEDS ORDERED: PANTOPRAZOLE 40 MG TABLET PO ONE (09:45)
[2022-09-23] MEDS ORDERED: GABAPENTIN 300 MG CAPSULE ONE (09:46)
[2022-09-23] MEDS: GABAPENTIN 300 MG CAPSULE PO SCH ×2 (09:56→21:17)
[2022-09-23] MEDS: PANTOPRAZOLE 40 MG TABLET PO SCH (09:56)
[2022-09-23] MEDS: TOPIRAMATE 25 MG TABLET PO SCH ×2 (09:56→21:29)
[2022-09-23] MEDS ORDERED: GABAPENTIN 300 MG CAPSULE PO SCH (10:00)
[2022-09-23] MEDS ORDERED: PATIENT'S OWN MEDICATION (NON-FORMULARY) (Lifitegrast [Xiidra] 1 EACH Droperette) OU SCH (10:00)
[2022-09-23] MEDS ORDERED: TOPIRAMATE 25 MG TABLET PO SCH (10:00)
[2022-09-23 12:36] LABS: URINE BARBITURATES NEGATIVE (NEGATIVE)
[2022-09-23 12:37] LABS: COCAINE, UR NEGATIVE (NEGATIVE); METHADONE, UR NEGATIVE (NEGATIVE); OPIATES, URI NEGATIVE (NEGATIVE); PHENCYCLIDINE,URINE NEGATIVE (NEGATIVE)
[2022-09-23 12:43] LABS: URINE AMPHETAMINES NEGATIVE (NEGATIVE); URINE BENZODIAZEPINES POSITIVE (NEGATIVE)
[2022-09-23] MEDS ORDERED: POLYETHYLENE GLYCOL (HEALTHYLAX) 3350 17 GM PACKET PO ONE (15:15)
[2022-09-23 15:23] VITALS: BMI 30.7
[2022-09-23] MEDS: oxyCODONE HCL 5 MG TABLET PO PRN (15:29)
[2022-09-23] MEDS ORDERED: OXYBUTYNIN CHLORIDE 5 MG TABLET PO SCH (22:00)
[2022-09-23] MEDS ORDERED: diazePAM 5 MG TABLET PO SCH (22:00)
[2022-09-23] MEDS ORDERED: LATANOPROSTENE BUNOD OU SCH (22:00)
[2022-09-23] MEDS ORDERED: QUEtiapine FUMARATE 100 MG TABLET (FP) PO SCH (22:00)
[2022-09-23 23:18] VITALS: RESP 18
[2022-09-24 09:57] LABS: HEMATOCRIT 39.8 % (32.4-45.2); HEMOGLOBIN 12.9 GM/dL (10.7-15.3); MCH 28.8 pg (25.7-33.7); MCHC 32.4 g/dl (32.0-36.0); MEAN CELL VOLUME 88.9 fl (80-96); PLATELET COUNT 159 10^3/uL (134-434); RBC 4.47 M/mm3 (3.60-5.2); RDW 13.7 % (11.6-15.6); WHITE BLOOD COUNT 4.5 K/mm3 (4.0-10.0)
[2022-09-24] MEDS ORDERED: POTASSIUM CHLORIDE TABS 10 MEQ TABLET.ER (FP) PO SCH (10:00)
[2022-09-24 10:21] LABS: MAGNESIUM 2.1 mg/dL (1.8-2.4)
[2022-09-24 10:23] LABS: ALBUMIN 3.1 g/dl (3.4-5.0); BLOOD UREA NITROGEN 8.6 mg/dL (7-18)
[2022-09-24 10:26] LABS: CREATININE 1.1 mg/dL (0.55-1.3); PHOSPHOROUS 3.2 mg/dL (2.5-4.9); TOT PROT 6.9 g/dl (6.4-8.2)
[2022-09-24] MEDS: PANTOPRAZOLE 40 MG TABLET PO SCH (10:33)
[2022-09-24] MEDS: GABAPENTIN 300 MG CAPSULE PO SCH (10:33)
[2022-09-24] MEDS: APIXABAN 5 MG TABLET PO SCH (10:33)
[2022-09-24] MEDS: TOPIRAMATE 25 MG TABLET PO SCH (10:33)
[2022-09-24] MEDS: FUROSEMIDE 40 MG TABLET (FP) PO SCH ×2 (10:33→17:11)
[2022-09-24 10:39] LABS: BILIRUBIN,TOTAL 0.4 mg/dL (0.2-1)
[2022-09-24] MEDS: oxyCODONE HCL 5 MG TABLET PO PRN (11:05)
[2022-09-24] MEDS: FAMOTIDINE 40 MG TABLET PO SCH (12:58)
[2022-09-24] MEDS: FAMOTIDINE 10 MG TABLET PO SCH (13:01)
[2022-09-24] MEDS: prednisoLONE ACETATE 1% OPHTH SUSP 5 ML BOTTLE OU SCH ×2 (14:00→17:29)
[2022-09-24 15:11] VITALS: BP 134/79; PULSE 91; TEMP 98.5
[2022-09-24] MEDS ORDERED: FAMOTIDINE 20 MG TABLET PO SCH (17:30)
[2022-09-25] MEDS ORDERED: PANTOPRAZOLE 40 MG TABLET PO SCH (07:00)
== END 2022-09-24 18:33 | disposition home or self-care (01) | DRG 881 ==
LOC: JER 14:18 → JERBED 20:30 → J4W 09-23 14:16
PROVIDERS: ADMIT Internal Medicine; ATTEND Internal Medicine
DX: F32.A Depression, unspecified (principal); F11.20 Opioid dependence, uncomplicated; R55 Syncope and collapse; R56.9 Unspecified convulsions; G43.909 Migraine, unspecified, not intractable, without status migrainosus; G89.29 Other chronic pain; G47.00 Insomnia, unspecified; K21.9 Gastro-esophageal reflux disease without esophagitis; M54.50 Low back pain, unspecified
CPT/HCPCS: 36415; 70450-TC; 70551-TC; 71045-TC-FY; 74177-TC; 76705-TC; 80053; 80061; 80307; 81003; 83605; 83735; 84100; 84484; 85025; 85027; 87086; 93005; 93010; 93971-TC; 97116-GP; 97161-GP; 99285-25; C9803-CS; Q9967; U0003; U0005

== ENCOUNTER 2023-05-05 19:37 | Inpatient (IN) | payer OTHER, MEDICARE ==
[2023-05-05 19:51] VITALS: BMI 29.0
[2023-05-05 20:45] LABS: BASO % 0.5 % (0-2.0); EOS % 1.2 % (0-4.5); HEMATOCRIT 42.3 % (32.4-45.2); HEMOGLOBIN 14.3 GM/dL (10.7-15.3); MCH 30.3 pg (25.7-33.7); MCHC 33.8 g/dl (32.0-36.0); MEAN CELL VOLUME 89.6 fl (80-96); MEAN PLT VOLUME 9.4 fl (7.5-11.1); MONO % 9.9 % (3.8-10.2); NEUT % 47.4 % (42.8-82.8); PLATELET COUNT 150 10^3/uL (134-434); RBC 4.72 M/mm3 (3.60-5.2); RDW 13.6 % (11.6-15.6); WHITE BLOOD COUNT 5.1 K/mm3 (4.0-10.0)
[2023-05-05 20:54] LABS: POTASSIUM 3.9 mmol/L (3.5-5.1)
[2023-05-05 20:56] LABS: CALCIUM 8.3 mg/dL (8.5-10.1)
[2023-05-05 20:57] LABS: ACTIVATED PTT 30.3 SECONDS (25.2-36.5); ALBUMIN 3.7 g/dl (3.4-5.0); INR 0.87 (0.83-1.09); PROTHROMBIN TIME (PATIENT) 10.1 SEC (9.7-13.0)
[2023-05-05 21:00] LABS: CREATININE 1.6 mg/dL (0.55-1.3)
[2023-05-05 21:01] LABS: TOT PROT 7.6 g/dl (6.4-8.2)
[2023-05-05 21:04] LABS: BILIRUBIN,TOTAL 0.2 mg/dL (0.2-1)
[2023-05-05] MEDS ORDERED: SODIUM CHLORIDE 0.9% 500 ML INFUS.BAG IV ONE (21:38)
[2023-05-06 00:17] LABS: URINE APPEARANCE CLEAR; URINE BILIRUBIN NEGATIVE (NEGATIVE); URINE COLOR YELLOW; URINE GLUCOSE (UA) NEGATIVE (NEGATIVE); URINE KETONE NEGATIVE (NEGATIVE); URINE LEUK ESTERASE NEGATIVE (NEGATIVE); URINE NITRITE NEGATIVE (NEGATIVE); URINE PROTEIN NEGATIVE (NEGATIVE); URINE UROBILINOGEN 0.2 mg/dL (0.2-1.0)
[2023-05-06] MEDS ORDERED: ZOLPIDEM TARTRATE 5 MG TABLET PO PRN (04:37)
[2023-05-06] MEDS: FUROSEMIDE 40 MG TABLET (FP) PO SCH ×2 (06:10→15:11)
[2023-05-06] MEDS ORDERED: PATIENT'S OWN MEDICATION (NON-FORMULARY) (Famotidine 40 MG Tablet) PO SCH (10:00)
[2023-05-06] MEDS ORDERED: PATIENT'S OWN MEDICATION (NON-FORMULARY) (Lifitegrast [Xiidra] 1 EACH Droperette) OU SCH (10:00)
[2023-05-06] MEDS ORDERED: ENOXAPARIN NA (PORCINE) 40 MG/0.4 ML DISP.SYRIN SQ SCH (10:00)
[2023-05-06] MEDS ORDERED: POTASSIUM CHLORIDE TABS 10 MEQ TABLET.ER (FP) PO SCH (10:00)
[2023-05-06] MEDS ORDERED: POTASSIUM CHLORIDE 10 MEQ in SODIUM CHLORIDE 0.45% 1,000 ML IVPB SCH (10:15)
[2023-05-06] MEDS ORDERED: SODIUM CHLORIDE 0.45% 1,000 ML IV SCH ×2 (10:45)
[2023-05-06] MEDS: PANTOPRAZOLE 40 MG TABLET PO SCH (10:49)
[2023-05-06] MEDS: GABAPENTIN 300 MG CAPSULE PO SCH ×2 (10:49→22:15)
[2023-05-06] MEDS: DULoxetine HCL 30 MG CAPSULE.DR PO SCH (10:49)
[2023-05-06] MEDS: TOPIRAMATE 25 MG TABLET PO SCH ×2 (10:49→22:15)
[2023-05-06] MEDS: diazePAM 5 MG TABLET PO SCH (10:50)
[2023-05-06 11:26] LABS: MAGNESIUM 2.2 mg/dL (1.8-2.4)
[2023-05-06 11:29] LABS: PHOSPHOROUS 1.9 mg/dL (2.5-4.9)
[2023-05-06] MEDS ORDERED: POTASSIUM PHOSPHATE 30 MM in SODIUM CHLORIDE 500 ML IVPB ONE (15:19)
[2023-05-06 16:32] LABS: POTASSIUM 3.8 mmol/L (3.5-5.1)
[2023-05-06 16:33] LABS: CALCIUM 8.8 mg/dL (8.5-10.1)
[2023-05-06 16:34] LABS: BLOOD UREA NITROGEN 14.1 mg/dL (7-18)
[2023-05-06 16:36] LABS: CREATININE 1.3 mg/dL (0.55-1.3)
[2023-05-06] MEDS: FENOFIBRIC ACID 135 MG CAP PO SCH (17:03)
[2023-05-06] MEDS ORDERED: diazePAM 5 MG TABLET PO SCH (22:00)
[2023-05-06] MEDS ORDERED: QUEtiapine FUMARATE 100 MG TABLET (FP) PO SCH (22:00)
[2023-05-06] MEDS ORDERED: SOLIFENACIN SUCCINATE 5 MG TAB PO SCH (22:00)
[2023-05-07] MEDS: FUROSEMIDE 40 MG TABLET (FP) PO SCH ×2 (06:00→13:35)
[2023-05-07] MEDS: TOPIRAMATE 100 MG TABLET PO SCH ×2 (06:00→09:52)
[2023-05-07] MEDS: PRAMIPEXOLE DIHYDROCHLORIDE 0.125 MG TABLET PO SCH ×2 (06:11→13:37)
[2023-05-07] MEDS: DULoxetine HCL 30 MG CAPSULE.DR PO SCH (09:49)
[2023-05-07] MEDS: GABAPENTIN 300 MG CAPSULE PO SCH (09:49)
[2023-05-07] MEDS: FENOFIBRIC ACID 135 MG CAP PO SCH (09:52)
[2023-05-07] MEDS: diazePAM 5 MG TABLET PO SCH (09:52)
[2023-05-07] MEDS: PANTOPRAZOLE 40 MG TABLET PO SCH (09:53)
[2023-05-07 13:21] LABS: POTASSIUM 3.5 mmol/L (3.5-5.1)
[2023-05-07 13:27] LABS: MAGNESIUM 2.3 mg/dL (1.8-2.4)
[2023-05-07 13:28] LABS: BLOOD UREA NITROGEN 11.6 mg/dL (7-18); CALCIUM 8.8 mg/dL (8.5-10.1)
[2023-05-07 13:29] LABS: ALBUMIN 3.6 g/dl (3.4-5.0)
[2023-05-07 13:31] LABS: CREATININE 1.2 mg/dL (0.55-1.3)
[2023-05-07 13:33] LABS: BILIRUBIN,TOTAL 0.4 mg/dL (0.2-1); TOT PROT 7.6 g/dl (6.4-8.2)
[2023-05-07 14:53] VITALS: TEMP 98.2
[2023-05-07 19:11] VITALS: BP 129/67; PULSE 95; RESP 18
== END 2023-05-07 21:39 | disposition home or self-care (01) | DRG 103 ==
LOC: JER 19:37 → JERBED 05-06 00:05 → OBSVTOIN 05-06 01:21 → J4S 05-06 03:58
PROVIDERS: ADMIT Internal Medicine; ATTEND Internal Medicine
DX: G43.109 Migraine with aura, not intractable, without status migrainosus (principal); R47.01 Aphasia; M54.16 Radiculopathy, lumbar region; M79.7 Fibromyalgia; M54.50 Low back pain, unspecified; K21.9 Gastro-esophageal reflux disease without esophagitis; F41.8 Other specified anxiety disorders; R00.0 Tachycardia, unspecified; R73.03 Prediabetes; G25.81 Restless legs syndrome; E83.39 Other disorders of phosphorus metabolism; Z86.73 Personal history of transient ischemic attack (TIA), and cerebral infarction without residual deficits; Z96.651 Presence of right artificial knee joint; Z86.718 Personal history of other venous thrombosis and embolism
CPT/HCPCS: 0241U-QW; 36415; 70450-TC; 80048; 80053; 80061; 81003; 82550; 82553; 82728; 82962; 83036; 83540; 83550; 83735; 84100; 84439; 84443; 84484; 85025; 85610; 85730; 86850; 86900; 86901; 93005; 93010; 93880-TC; 99285-25; G0378

== ENCOUNTER 2023-08-01 19:46 | Emergency (ER) | payer OTHER, MEDICARE ==
[2023-08-01 19:50] VITALS: BP 139/84; RESP 18; TEMP 98.6
[2023-08-01 19:52] VITALS: BMI 29.0
[2023-08-01 21:49] VITALS: PULSE 84
== END 2023-08-01 22:09 | disposition home or self-care (01) ==
LOC: JER 19:46
DX: M79.652 Pain in left thigh (principal); R51.9 Headache, unspecified; R07.0 Pain in throat; J02.9 Acute pharyngitis, unspecified; M79.605 Pain in left leg; U07.0 Vaping-related disorder
CPT/HCPCS: 0241U-QW; 87651; 93971-TC; 99284-25

== ENCOUNTER 2024-07-24 08:59 | Day surgery (SDC) | payer OTHER, MEDICARE ==
[2024-07-18 10:29] VITALS: BMI 29.8
[2024-07-24] MEDS ORDERED: GENTAMICIN SO4 80 MG/2 ML VIAL ONE (09:32)
[2024-07-24] MEDS ORDERED: LIDOCAINE HCL 1%, 10 MG/ML (20ML VIAL) ONE (09:32)
[2024-07-24] MEDS ORDERED: BUPIVACAINE HCL/PF 0.5% (5MG/ML) 10 ML VIAL ONE (09:33)
[2024-07-24] MEDS ORDERED: BENZOIN/ALOE VERA/STORAX/TOLU 58 ML BOTTLE ONE (10:07)
[2024-07-24] MEDS ORDERED: MIDAZOLAM HCL 2 MG/2 ML SINGLE DOSE VIAL ONE (10:47)
[2024-07-24] MEDS ORDERED: PROPOFOL 60 ML ONE (10:48)
[2024-07-24] MEDS ORDERED: ceFAZolin SODIUM 1 GM VIAL ONE ×2 (11:13)
[2024-07-24] MEDS ORDERED: LACTATED RINGERS SOLUTION 1,000 ML IV SCH (12:30)
[2024-07-24] MEDS ORDERED: FENTANYL CITRATE/PF 50 MCG/ML VIAL ONE (12:36)
[2024-07-24] MEDS ORDERED: ACETAMINOPHEN 1000 MG/100 ML BAG IVPB ONE (12:52)
[2024-07-24 16:06] VITALS: BP 130/77; PULSE 73; RESP 17; TEMP 97.1
== END 2024-07-24 14:40 | disposition home or self-care (01) ==
LOC: FASU 08:59
PROVIDERS: ATTEND Podiatrist Foot Surgery
PROC: 0QBN0ZZ Excision of Right Metatarsal, Open Approach (ICD-10-PCS; principal; 2024-07-24 11:18)
PROC: 0QP104Z Removal of Internal Fixation Device from Sacrum, Open Approach (ICD-10-PCS; 2024-07-24 11:18)
DX: T84.498A Other mechanical complication of other internal orthopedic devices, implants and grafts, initial encounter (principal); Y79.3 Surgical instruments, materials and orthopedic devices (including sutures) associated with adverse incidents; Y92.9 Unspecified place or not applicable; M79.671 Pain in right foot
CPT/HCPCS: 73630-TC-RT-FY; 88300-TC; 88304-TC; 88311-TC; 94760